=== PATIENT | male | born 1980 | race Caucasian/White ===

== ENCOUNTER 2022-06-08 10:32 | Emergency (ER) | payer MEDICAID, OTHER, SELFPAY ==
[2022-06-08 10:43] VITALS: BP 174/124; BP 220/101; PULSE 92; RESP 18; TEMP 36.6; O2SAT 96; BMI 28.0
--- NOTE | 2022-06-08 11:02 | ED.GENADULT ---
HPI - General Adult General Chief complaint: General Medical Stated complaint: EYE SWELLING,HIGH BP 200/150FROM WALKIN PER EMS Time Seen by Provider: 06/08/22 10:54 Source: patient, EMS and [place] operator Mode of arrival: ambulatory Limitations: language barrier History of Present Illness HPI narrative: 41 yo male palestinian speaking no medical history here with complaints of right eyelid swelling/pain x 3 days. Seen last night at [facility] and prescribed an oral antibiotic. Patient reports he did not nut picker the medication or started yet. Today when he woke up he noticed increased swelling to the eyelid with pain and so he went to a walk-in clinic. He was noted to have high blood pressure there and so he was referred into the ER for further evaluation. Patient tells me that his blood pressure has been running high over the last few months. They did tell him last night including [facility] that his blood pressure was elevated and recommended follow-up with primary care doctor. He does not have a primary care doctor. Patient reports they did have to give him something for his all pressure yesterday at [facility] to consider ER. He was not discharged home with any antihypertensive. At the urgent care today he did receive 325 mg of aspirin and 0.2 mg clonidine. Patient denies any headache, dizziness, chest pain, vision changes. Denies smoking history. He tells me he eats lots of salt in his diet and drinks coffee frequently. He tells me that he continues to have right eyelid swelling and pain. He tells me the eye does not hurt him. He does have some itching of the eye and crusting and drainage from the eye. He denies any vision changes. Related Data Previous Rx's Medication Instructions Recorded amlodipine 5 mg tablet (Norvasc) 5 mg PO DAILY #60 tabs 06/08/22 erythromycin 5 mg/gram (0.5 %) eye 1 appl ophthalmic (eye) DAILY #3.5 06/08/22 ointment grams Allergies Allergy/AdvReac Type Severity Reaction Status Date / Time No Known Allergies Allergy Verified 06/08/22 11:46 Review of Systems Review of Systems: Yes all other systems are reviewed and are negative Constitutional: Constitutional: Reports no additional constitutional complaints, Denies body ache(s), Denies chills, Denies fever(s), Denies headache(s) and Denies weakness Eyes: Eyes: Reports no additional eye complaints, Denies change in vision, Reports eye discharge, Reports itchy eyes, Denies eye pain, Denies requires corrective lenses and Denies photophobia ENT: Reports system reviewed and no additional complaints, except as documented, Denies dizziness, Denies headache(s), Denies nasal congestion, Denies nasal discharge and Denies neck pain Cardiovascular: Cardiovascular: Reports no additional cardiovascular complaints, Denies chest pain, Denies leg edema and Denies dyspnea Respiratory: Respiratory: Reports no additional respiratory complaints, Denies cough and Denies dyspnea Gastrointestinal: Gastrointestinal: Reports no additional gastrointestinal complaints, Denies abdominal pain, Denies diarrhea, Denies nausea and Denies vomiting Genitourinary: Genitourinary: Denies urinary incontinence Musculoskeletal: Musculoskeletal: Reports no additional musculoskeletal complaints, Denies back pain, Denies arthralgias, Denies joint swelling, Denies neck pain, Denies numbness and Denies tingling Integumentary/Breasts: Skin/Breast: Reports system reviewed and no additional complaints, except as docu and Denies rash Neurologic: Reports system reviewed and no additional complaints, except as documented, Denies dizziness, Denies headache(s), Denies numbness, Denies tingling and Denies weakness Allergic/Immunologic: Allergic/Immunologic: Reports itchy eyes PMFSH Past Medical History Attestation statement: The following information was validated with the patient. Source: old records reviewed and nursing notes reviewed Social History Social History Smoked in Last 30 Days: No Use of substances other than those prescribed or required for medical reasons: No Advance Directives: No Advance Directives Information Provided: Yes Physical Exam ED Vital Signs: Vital Signs - 24 hr 06/08/22 10:43 06/08/22 11:03 06/08/22 11:31 Temperature 98 F 98 F Pulse Rate 92 92 Respiratory Rate 18 18 Blood Pressure 174/124 H 174/124 H 151/97 H Pulse Oximetry 96 96 Oxygen Delivery Method Room Air Room Air 06/08/22 12:10 06/08/22 13:03 Temperature Pulse Rate 80 92 Respiratory Rate 16 12 Blood Pressure 164/112 H 143/99 H Pulse Oximetry 96 97 Oxygen Delivery Method Room Air Room Air BMI result Body Mass Index 28.0 Const General: cooperative, healthy appearing, comfortable and no acute distress Orientation/consciousness: patient oriented x3 Limitations: no limitations HENMT Head: Yes normal to inspection Ears: hearing grossly normal bilaterally and TM's normal bilaterally Eyes Other: See charted visual acuity IOP right eye 16, IOP left eye 17 No opthalmaplegia General: appearance normal, both eyes and all related structures Visual Rocha: normal visual rocha by confrontation Alignment and Position: alignment normal Periorbital: periorbital findings normal Eyelids: Yes eyelid abnormality (+chalazion with drainage to right upper eyelid) and Yes other (To the right upper eyelid there is swelling, erythema, tenderness) Conjunctivae: conjunctivae normal Sclerae: sclerae normal Corneas: corneas normal and fluorescein used (No corneal abrasion or foreign body) Pupils: Equal, round and reactive pupils present EOM: EOMs intact bilaterally Direct Ophthalmoscopy: normal light reflex, no photophobia and No photophobia Neck Neck: Yes normal visual inspection, Yes full ROM, Yes no lymphadenopathy and Yes no meningeal signs Chest Chest palpation & inspection: normal inspection of the chest Resp Effort & Inspection: normal respiratory effort Auscultation: clear to auscultation bilaterally Cardio Rate: regular rate Rhythm: regular rhythm Peripheral pulses: Peripheral pulses 2+ throughout GI Inspection: Yes normal to inspection Palpation (GI): Soft to palpation and nontender General: Yes no CVA tenderness Back/Spine/Pelvis Back: no CVA tenderness Thoracic/Lumbar Spine: thoracic and lumbar spine normal to inspection Skin General skin exam: no rashes or lesions noted Neuro General: patient oriented x3, moves all extremities and no meningeal signs Cranial nerves: Yes Equal, round and reactive pupils present Cognition (Neuro): normal cognition Gait exam (Neuro): Normal gait present Extrem General: Yes normal to inspection, Yes no pedal edema and Yes no calf tenderness Course Course Course Narrative: Blood pressure is improved. Labs are unremarkable. EKG shows no ischemic changes. Patient is asymptomatic with his hypertension. His eye exam shows normal visual acuity, normal pressures, no corneal foreign body or abrasion, no pain with EOM, no eye muscle weakness. Pupils are equal and reactive. Patient has a chalazion on exam. I did get the records from [facility]. The patient had a prescription for cephalexin sent to the pharmacy which she has not picked up. I recommend he nut picker a cephalexin. I am adding erythromycin ointment and a low-dose of Norvasc for his blood pressure with recommendations to establish a primary care doctor in follow-up. Patient has a blood pressure machine at home. I recommend he check his blood pressure weekly and write down his numbers for follow-up purposes. Reviewed worrisome signs and symptoms with parking patroller. Comfortable plan for discharge home. Medications Administered Discontinued Medications Generic Name Dose Route Start Last Admin Trade Name Lesia PRN Reason Stop Dose Admin Amlodipine Besylate 5 mg 06/08/22 11:47 06/08/22 12:04 Amlodipine Besylate 5 Mg Tablet PO 06/08/22 11:48 5 mg ONCE ONE Administration Protocol Fluorescein Sodium 1 strip 06/08/22 11:46 06/08/22 12:04 Fluorescein Sodium Strip EYE-RIGHT 06/08/22 11:47 1 strip ONCE ONE Administration Tetracaine HCl 1 drop 06/08/22 11:46 06/08/22 12:04 Tetracaine Hcl/Pf 0.5% Oph Megan 4 Ml Drops EYE-RIGHT 06/08/22 11:47 1 drop ONCE ONE Administration Medical Decision Making Medical Decision Making [facility] Narrative: 41-year-old male with no known medical history presents to urgent care with concern for hypertension. Patient received clonidine an aspirin prior to arrival. Patient has asymptomatic hypertension on arrival. Will check labs, UA, EKG, give low dose norvasc and re-assess. Patient initially went to urgent care due to concern for right eyelid swelling and pain. Patient has had this for 3 days with associated eye itching and drainage with no reports of visual change. Patient seen last excluded consider ER and prescribed an oral antibiotic which he does not know the name of the. Patient did not start the antibiotic but went to Urgent Care today because he felt the swelling was increased. On exam there is right upper eyelid swelling, erythema with a chalazion which is actively draining. Will need eye exam, visual acuity, eye pressure Differential Diagnosis Differential Diagnoses: The differential diagnosis associated with the presentation includes Low concern for orbital cellulitis, periorbital cellulitis, acute glaucoma, corneal foreign body Low concern for ACS, hypertensive crisis Lab Data [facility] Lab Attestation statement: I reviewed the patient's lab results. 06/08/22 11:55 06/08/22 11:55 Labs: Lab Results 06/08/22 06/08/22 06/08/22 Range/Units 11:55 11:55 12:21 WBC 8.4 (4.8-10.8) X10*3/uL RBC 5.80 (4.60-5.80) X10*6/uL Hgb 17.4 (14.0-18.0) g/dl Hct 49.4 (42.0-52.0) % MCV 85.2 (80.0-98.0) fL MCH 30.0 (27.0-33.0) pg MCHC 35.2 (31.0-36.0) g/dl RDW 11.9 (11.0-16.0) % Plt Count 263 (160-400) X10*3/uL MPV 8.7 L (9.4-12.4) fL Immature Gran % (Auto) 0.2 (0.0-0.4) % Neut % (Auto) 72.3 (45-73) % Lymph % (Auto) 21.6 (20-40) % Sebastian % (Auto) 5.0 (2-11) % Eos % (Auto) 0.4 (0-4) % Baso % (Auto) 0.5 (0-2) % Lymph # (Auto) 1.8 (1.2-4.9) X10*3/uL Sebastian # (Auto) 0.4 (0.1-1.2) X10*3/uL Eos # (Auto) 0.0 (0.0-0.4) X10*3/uL Baso # (Auto) 0.0 (0.0-0.2) X10*3/uL Abs Immat Gran (auto) 0.02 (0.00-0.03) X10*3/uL Absolute Neuts (auto) 6.1 (2.0-8.3) x10*3/uL Absolute Nucleated RBC 0.000 (0.0-0.012) X10*3/uL Nucleated RBC % (auto) 0.0 (0.0-0.2) /100WBC Sodium 142 (135-145) mmol/L Potassium 3.8 (3.3-5.1) mmol/L Chloride 109 H (96-108) mmol/L Carbon Dioxide 26 (22-29) mmol/L Anion Gap 11 L (12-20) BUN 9 (9-16) mg/dL Creatinine 0.83 (0.5-1.4) mg/dL Estim Creat Clear Calc 129.9 Estimated GFR > 60 Random Glucose 111 (60-115) mg/dL Calcium 9.1 (8.4-10.2) mg/dL Urine Color Yellow Urine Appearance Clear Urine pH 8.0 (5.0-9.0) Ur Specific [place] 1.015 (1.005-1.025) Urine Protein 30 (1+) H (Neg-Trace) mg/dL Urine Glucose (UA) Negative (Negative) mg/dL Urine Ketones Negative (Negative) mg/dL Urine Blood Negative (Negative) Urine Nitrite Negative (Negative) Ur Leukocyte Esterase Negative (Negative) Urine RBC 0-2 (0-2) /HPF Urine WBC 0-5 (0-5) /HPF Ur Squamous Epith Cells 0-2 (0-2) /HPF Urine Bacteria None Seen (None Seen) Hyaline Casts 0-2 (0-2) /LPF Independent Interpretation I performed an independent interpretation of an: EKG Interpretation: I independently the EKG which shows normal sinus rhythm with rate of 75, normal NV, normal QRS, normal QT Discharge Plan Discharge Clinical Impression: Hypertension, Chalazion of right upper eyelid Patient Disposition: Home, Self-Care Instructions: Chalazion (ED), Hypertension (ED) Additional Instructions: Compresas calientes 4 veces al d?a. Recoja el antibi?fernie que le recet? kyle el [facility] y comience lo antes posible. Agregue la pomada antibi?fanny para ojos que le estoy recetando hoy. Alcaraz presi?n arterial estaba elevada. Debe limitar la davy al rajat alcaraz dieta y alcaraz consumo de cafe?na tambi?n. Le estamos comenzando con un medicamento para la presi?n arterial. Debe controlar la presi?n arterial michael vez por semana en casa y anotar los n?meros. Es necesario establecer un m?dico de atenci?n primaria para el seguimiento con ellos en lo que respecta a alcaraz presi?n arterial. Prescriptions: New amlodipine [Norvasc] 5 mg tablet 5 mg PO DAILY Qty: 60 0RF erythromycin 5 mg/gram (0.5 %) ointment 1 appl ophthalmic (eye) DAILY Qty: 3.5 0RF Stand Alone Forms: Work/School Release Interventions: ED Discharge Assessment Last Done: 06/08/22 14:12 Discharge Date/Time: 06/08/22 14:13 Print Language: Palauan
[2022-06-08 11:03] VITALS: BP 174/124; PULSE 92; RESP 18; TEMP 36.6; O2SAT 96
--- NOTE | 2022-06-08 11:06 | PC.NURSE ---
waiting on on housekeeping staff
[2022-06-08 11:31] VITALS: BP 151/97
[2022-06-08 11:59] LABS: MANUAL DIFF FLAG NO
[2022-06-08 12:01] LABS: Basophils Percent Auto 0.5 % (0-2); Eosinophils Percent Auto 0.4 % (0-4); Hematocrit 49.4 % (42.0-52.0); Hemoglobin 17.4 g/dl (14.0-18.0); Imm Gran Abs Auto 0.02 X10*3/uL (0.00-0.03); Imm Gran Pct Auto 0.2 % (0.0-0.4); Lymphocytes Absolute Auto 1.8 X10*3/uL (1.2-4.9); Lymphocytes Percent Auto 21.6 % (20-40); Mean Corpuscular HGB Conc 35.2 g/dl (31.0-36.0); Mean Corpuscular Volume 85.2 fL (80.0-98.0); Mean Platelet Volume 8.7 fL (9.4-12.4); Monocytes Absolute Auto 0.4 X10*3/uL (0.1-1.2); Neutrophils Absolute Auto 6.1 x10*3/uL (2.0-8.3); Neutrophils Percent Auto 72.3 % (45-73); Platelet Count 263 X10*3/uL (160-400); Red Cell Distribution Width 11.9 % (11.0-16.0); White Blood Count 8.4 X10*3/uL (4.8-10.8)
[2022-06-08] MEDS: Tetracaine HCl/PF 0.5% Oph Sol 4 ML DROPS 1 DROP EYE-RIGHT (12:04)
[2022-06-08] MEDS: Fluorescein Sodium STRIP 1 STRIP EYE-RIGHT (12:04)
[2022-06-08] MEDS: amLODIPine Besylate 5 MG TABLET PO (12:04)
--- NOTE | 2022-06-08 12:08 | ECG_ITS ---
Test Reason : hypertension Blood Pressure : / mmHG Vent. Rate : 075 BPM Atrial Rate : 075 BPM P-R Int : 168 ms QRS Dur : 086 ms QT Int : 362 ms P-R-T Axes : 036 009 008 degrees QTc Int : 404 ms Normal sinus rhythm Inferior infarct , age undetermined Abnormal ECG No previous ECGs available Referred By: Kaci Choudhury Electronically Signed By:NAPOLEON KEEN MD
[2022-06-08 12:10] VITALS: BP 164/112; PULSE 80; RESP 16; O2SAT 96
[2022-06-08 12:24] LABS: Anion Gap 11 (12-20); Blood Urea Nitrogen 9 mg/dL (9-16); Calcium 9.1 mg/dL (8.4-10.2); Carbon Dioxide 26 mmol/L (22-29); Chloride 109 mmol/L (96-108); Creatinine Clr Calc Pharmacy 129.9; Estimated Glomerular Filt Rate > 60; Glucose Random 111 mg/dL (60-115); Potassium 3.8 mmol/L (3.3-5.1); Sodium 142 mmol/L (135-145)
[2022-06-08 12:27] LABS: Appearance Urine Clear; Color Urine Yellow; Glucose Urine UA Negative (Negative); Leukocyte Esterase Urine Negative (Negative); Nitrite Urine Negative (Negative); Specific Gravity - Urine 1.015 (1.005-1.025); UMIC TRIGGER UACC YES; Urine Blood Negative (Negative); Urine Ketones Negative (Negative); Urine Protein 30 (1+) mg/dL (Neg-Trace)
[2022-06-08 12:34] LABS: Bacteria Urine None Seen (None Seen); Hyaline Casts Urine 0-2 /LPF (0-2); RBC Urine 0-2 /HPF (0-2); Squamous Epithelial Cell Urine 0-2 /HPF (0-2); WBC Urine 0-5 /HPF (0-5)
[2022-06-08 13:03] VITALS: BP 143/99; PULSE 92; RESP 12; O2SAT 97
--- NOTE | 2022-06-08 13:48 | MHC.CM.NN ---
CM MET WITH PT TO DISCUSS IMPORTANCE/PROCESS OF FOLLOWING UP WITH A PCP PT HAS LIMITED INSURANCE, HE WAS THEREFORE ENCOURAGED TO FOLLOW UP AT THE [facility] HE HAS INDICATED HE IS FAMILIAR WITH THE FACILITY AND WILL MAKE AN APPT HE IS AWARE THEY HAVE URGENT CARE HOURS IF HE NEEDS CARE PROIR TO APPT
== END 2022-06-08 14:13 | disposition home or self-care (01) ==
PROVIDERS: Nurse Practitioner Family; Emergency Provider Emergency Medicine
DX: H00.11 Chalazion right upper eyelid (principal); I10 Essential (primary) hypertension; R94.31 Abnormal electrocardiogram [ECG] [EKG]; Z79.899 Other long term (current) drug therapy
CPT/HCPCS: 36415; 80048; 81001; 85025; 93005; 99283; 99285

== ENCOUNTER 2022-06-20 20:30 | Emergency (ER) | payer MEDICAID, OTHER, SELFPAY ==
--- NOTE | ~2022-06-20 | XR_ITS ---
EXAMINATION: XR CHEST CLINICAL INFORMATION: Pain COMPARISON: None available. TECHNIQUE: 2 views of the chest were obtained. FINDINGS: No significant abnormality is noted involving the heart, lungs, mediastinum, bony thorax or soft tissues. XR/XR chest 2V IMPRESSION: Unremarkable examination.
[2022-06-20 20:35] VITALS: BP 166/116; PULSE 76; RESP 18; TEMP 36.3; O2SAT 99; BMI 33.9
--- NOTE | 2022-06-20 20:37 | ECG_ITS ---
Test Reason : CHEST PAIN Blood Pressure : / mmHG Vent. Rate : 070 BPM Atrial Rate : 070 BPM P-R Int : 174 ms QRS Dur : 092 ms QT Int : 388 ms P-R-T Axes : 014 008 011 degrees QTc Int : 419 ms Normal sinus rhythm Normal ECG When compared with ECG of 08-JUN-2022 12:15, No significant change was found Referred By: Carlos Pérez Electronically Signed By:KENDELL DAUGHERTY
--- NOTE | 2022-06-20 20:37 | ED_ITS ---
HPI - General Adult General Chief complaint: Chest Pain <Carlos Pérez - Last Filed: 06/20/22 20:39> Stated complaint: high bp <Carlos Pérez - Last Filed: 06/20/22 20:39> Time Seen by Provider: 06/20/22 21:00 <Carlos Pérez - Last Filed: 06/20/22 20:39> Source: patient <Brie Frazier MD - Last Filed: 06/21/22 00:50> Mode of arrival: ambulatory <Brie Frazier MD - Last Filed: 06/21/22 00:50> Limitations: no limitations <Brie Frazier MD - Last Filed: 06/21/22 00:50> History of Present Illness HPI narrative: Patient comes emergency room complaining of chest pain that started approximately 2 1-1/2 hours ago. Patient states that the sharp pain on the left, gradually decreasing. Patient denies any shortness of breath. Patient states that for the last couple of weeks, he has had increased blood pressure, about a week ago he was started on 5 mg amlodipine, his blood pressure did not improve, started on chlorthalidone 25 mg 2 days later. Patient states that he does not think amlodipine 5 mg worked and stop taking amlodipine instead of taking both medications. <Brie Frazier MD - Last Filed: 06/21/22 00:50> Related Data Home medications: Previous Rx's Medication Instructions Recorded amlodipine 5 mg tablet (Norvasc) 5 mg PO DAILY #60 tabs 06/08/22 erythromycin 5 mg/gram (0.5 %) eye 1 appl ophthalmic (eye) DAILY #3.5 06/08/22 ointment grams <Carlos Pérez - Last Filed: 06/20/22 20:39> Allergies/adverse reactions: Allergies Allergy/AdvReac Type Severity Reaction Status Date / Time No Known Allergies Allergy Verified 06/08/22 11:46 <Carlos Pérez - Last Filed: 06/20/22 20:39> Review of Systems Review of Systems: Constitutional : No Weight loss, No Fever, No Chills, No Night Sweats, No Fatigue, No Malaise ENT/Mouth : No Hearing loss, No Ear Pain, No Nasal Congestion, No Sinus Pain, No Hoarseness, No sore throat, No Rhinorrhea, No Swallowing Difficulty Eyes: No Eye Pain, No Swelling, No Redness, No Foreign Body, No Discharge, No Vision Changes Cardiovascular : Complaining of sharp chest pain that is gradually resolving, No SOB, No Dyspnea on Exertion, No Orthopnea, No Edema, No Palpitations Respiratory : No Cough, No Sputum, No Wheezing, No Smoke Exposure, No Dyspnea Gastrointestinal : No Nausea, No Vomiting, No Diarrhea, No Constipation, No abdominal Pain, No Hematochezia, No Melena Genitourinary : no irregular bleeding, No Dysuria, No Urinary Frequency, No Hematuria, No Urinary Incontinence, No Urgency, No Flank Pain, No Urinary Flow Changes, No Hesitancy Musculoskeletal : No joint pain, No Myalgias, No Joint Swelling Skin : No Skin Lesions, No rash Neuro : No Weakness, No Numbness, No Paresthesias, No Loss of Consciousness, No Dizziness, No Headache Psych : No Anxiety/Panic, No Depression, No SI/HI/AH/VH, No Social Issues, Heme/Lymph: No Bruising, No Bleeding,No Lymphadenopathy Endocrine : No Polyuria, No Polydipsia, No Temperature Intolerance <Brie Frazier MD - Last Filed: 06/21/22 00:50> [facility] Past Medical History Medical History: Medical History Hypertension Prediabetes <Carlos Pérez - Last Filed: 06/20/22 20:39> Social History Social History: Social History Advance Directives: No Advance Directives Information Provided: No <Carlos Pérez - Last Filed: 06/20/22 20:39> Physical Exam ED Vital Signs: Vital Signs - 24 hr 06/20/22 20:35 06/20/22 23:52 Temperature 97.4 F 98.0 F Pulse Rate 76 62 Respiratory Rate 18 19 Blood Pressure 166/116 H 136/92 H Pulse Oximetry 99 97 Oxygen Delivery Method Room Air Room Air BMI result Body Mass Index 33.9 <Carlos Pérez - Last Filed: 06/20/22 20:39> Vital Signs - 24 hr 06/20/22 20:35 06/20/22 23:52 Temperature 97.4 F 98.0 F Pulse Rate 76 62 Respiratory Rate 18 19 Blood Pressure 166/116 H 136/92 H Pulse Oximetry 99 97 Oxygen Delivery Method Room Air Room Air BMI result Body Mass Index 33.9 <Brie Frazier MD - Last Filed: 06/21/22 00:50> Const Other: Appearance: Alert. Oriented X3. No acute distress. Eyes: Pupils equal, round and reactive to light. ENT: Pharynx normal. Neck: Normal inspection. Neck supple. No lymph nodes noted. No crepitus CVS: Normal heart rate and rhythm. Pulses normal. Normal S1 and S2 Respiratory: No respiratory distress. Breath sounds normal. No Wheezing. No rales Abdomen: Soft and nontender. No rigidity. No distention. Skin: Skin warm and dry. Normal skin color. Normal skin turgor. Extremities: No lower extremity edema. No Lacerations. No Rash Neuro: Oriented X 3. No motor deficit. No sensory deficit. Moving all extremities. No slurred speech. CN 2 through 12 grossly intact Psych: calm, cooperative, normal affect <Brie Frazier MD - Last Filed: 06/21/22 00:50> Course Course Course Narrative: 41-year-old male past medical history significant for high blood pressure presents for evaluation of high blood pressure and chest pain. Patient reports high blood pressure for last 2 weeks. He reports dizziness, blurry vision and headache that started today. Plan for cardiac work <Carlos Pérez - Last Filed: 06/20/22 20:39> Medications Administered Discontinued Medications Generic Name Dose Route Start Last Admin Trade Name Freq PRN Reason Stop Dose Admin Amlodipine Besylate 10 mg 06/20/22 22:29 06/20/22 22:40 Amlodipine Besylate 10 Mg Tablet PO 06/20/22 22:30 10 mg ONCE ONE Administration Protocol <Carlos Pérez - Last Filed: 06/20/22 20:39> Medications Administered Discontinued Medications Generic Name Dose Route Start Last Admin Trade Name Freq PRN Reason Stop Dose Admin Amlodipine Besylate 10 mg 06/20/22 22:29 06/20/22 22:40 Amlodipine Besylate 10 Mg Tablet PO 06/20/22 22:30 10 mg ONCE ONE Administration Protocol <Brie Frazier MD - Last Filed: 06/21/22 00:50> Medical Decision Making Medical Decision Making [facility] Narrative: -I discussed with the patient that now he has to blood pressure medication s, the 1st 1 is not a maximum dose. I discussed with the patient to increase amlodipine to full dose before adding a 2nd medication. Patient agrees to plan, patient will be taking 10 mg of amlodipine, hold off on taking chlorthalidone. -patient has not taking amlodipine today, patient will be given 1 dose of 10 mg in the emergency room. -EKG my interpretation: Normal sinus rhythm, heart rate 70, no ST segment depression or elevation, specific T-wave inversion in lead 3, QTC 419 -discussed with the patient I will obtain a 2nd troponin, 3 hours apart from the 1st set of lab work, patient with plan. -at this time, patient feeling well, states he has residual sensation of pain in the chest but no significant pain. Denies Shortness of breath -patient was given 1 dose of amlodipine 10 mg, blood pressure 136/92, patient asymptomatic. -patient just picked up his new prescription of amlodipine a few days ago, patient has home amlodipine, does not request a new prescription <Brie Frazier MD - Last Filed: 06/21/22 00:50> Differential Diagnosis Differential Diagnoses: The differential diagnosis associated with the presentation includes (Hypertension, anxiety) <Brie Frazier MD - Last Filed: 06/21/22 00:50> Lab Data [facility] Lab Attestation statement: I reviewed the patient's lab results. <Brie Frazier MD - Last Filed: 06/21/22 00:50> Result Diagrams: 06/20/22 20:52 06/20/22 20:52 <Carlos Pérez - Last Filed: 06/20/22 20:39> Labs: Lab Results 06/20/22 06/20/22 06/20/22 Range/Units 20:52 20:52 20:52 WBC 7.7 (4.8-10.8) X10*3/uL RBC 5.60 (4.60-5.80) X10*6/uL Hgb 16.7 (14.0-18.0) g/dl Hct 46.6 (42.0-52.0) % MCV 83.2 (80.0-98.0) fL MCH 29.8 (27.0-33.0) pg MCHC 35.8 (31.0-36.0) g/dl RDW 11.6 (11.0-16.0) % Plt Count 288 (160-400) X10*3/uL MPV 8.9 L (9.4-12.4) fL Immature Gran % (Auto) 0.1 (0.0-0.4) % Neut % (Auto) 57.7 (45-73) % Lymph % (Auto) 35.0 (20-40) % [place] % (Auto) 6.5 (2-11) % Eos % (Auto) 0.3 (0-4) % Baso % (Auto) 0.4 (0-2) % Lymph # (Auto) 2.7 (1.2-4.9) X10*3/uL [place] # (Auto) 0.5 (0.1-1.2) X10*3/uL Eos # (Auto) 0.0 (0.0-0.4) X10*3/uL Baso # (Auto) 0.0 (0.0-0.2) X10*3/uL Abs Immat Gran (auto) 0.01 (0.00-0.03) X10*3/uL Absolute Neuts (auto) 4.5 (2.0-8.3) x10*3/uL Absolute Nucleated RBC 0.000 (0.0-0.012) X10*3/uL Nucleated RBC % (auto) 0.0 (0.0-0.2) /100WBC Sodium 139 (135-145) mmol/L Potassium 3.6 (3.3-5.1) mmol/L Chloride 103 (96-108) mmol/L Carbon Dioxide 28 (22-29) mmol/L Anion Gap 12 (12-20) BUN 12 (9-16) mg/dL Creatinine 0.96 (0.5-1.4) mg/dL Estim Creat Clear Calc 115.9 Estimated GFR > 60 Random Glucose 91 (60-115) mg/dL Calcium 9.7 D (8.4-10.2) mg/dL Magnesium 2.4 (1.6-2.6) mg/dL Total Bilirubin 1.3 H (0.0-1.0) mg/dL AST 63 H (5-37) U/L ALT 151 H (0-40) U/L Alkaline Phosphatase 126 H (39-117) U/L Troponin I High Sens < 2.7 (<3.5-35.0) ng/L Total Protein 7.8 (6.5-8.0) g/dL Albumin 4.9 (3.5-5.0) g/dL 06/20/22 Range/Units 22:51 WBC (4.8-10.8) X10*3/uL RBC (4.60-5.80) X10*6/uL Hgb (14.0-18.0) g/dl Hct (42.0-52.0) % MCV (80.0-98.0) fL MCH (27.0-33.0) pg MCHC (31.0-36.0) g/dl RDW (11.0-16.0) % Plt Count (160-400) X10*3/uL MPV (9.4-12.4) fL Immature Gran % (Auto) (0.0-0.4) % Neut % (Auto) (45-73) % Lymph % (Auto) (20-40) % [place]ilton % (Auto) (2-11) % Eos % (Auto) (0-4) % Baso % (Auto) (0-2) % Lymph # (Auto) (1.2-4.9) X10*3/uL [place] # (Auto) (0.1-1.2) X10*3/uL Eos # (Auto) (0.0-0.4) X10*3/uL Baso # (Auto) (0.0-0.2) X10*3/uL Abs Immat Gran (auto) (0.00-0.03) X10*3/uL Absolute Neuts (auto) (2.0-8.3) x10*3/uL Absolute Nucleated RBC (0.0-0.012) X10*3/uL Nucleated RBC % (auto) (0.0-0.2) /100WBC Sodium (135-145) mmol/L Potassium (3.3-5.1) mmol/L Chloride (96-108) mmol/L Carbon Dioxide (22-29) mmol/L Anion Gap (12-20) BUN (9-16) mg/dL Creatinine (0.5-1.4) mg/dL Estim Creat Clear Calc Estimated GFR Random Glucose (60-115) mg/dL Calcium (8.4-10.2) mg/dL Magnesium (1.6-2.6) mg/dL Total Bilirubin (0.0-1.0) mg/dL AST (5-37) U/L ALT (0-40) U/L Alkaline Phosphatase (39-117) U/L Troponin I High Sens < 2.7 (<3.5-35.0) ng/L Total Protein (6.5-8.0) g/dL Albumin (3.5-5.0) g/dL <Carlos Pérez - Last Filed: 06/20/22 20:39> Lab Results 06/20/22 06/20/22 06/20/22 Range/Units 20:52 20:52 20:52 WBC 7.7 (4.8-10.8) X10*3/uL RBC 5.60 (4.60-5.80) X10*6/uL Hgb 16.7 (14.0-18.0) g/dl Hct 46.6 (42.0-52.0) % MCV 83.2 (80.0-98.0) fL MCH 29.8 (27.0-33.0) pg MCHC 35.8 (31.0-36.0) g/dl RDW 11.6 (11.0-16.0) % Plt Count 288 (160-400) X10*3/uL MPV 8.9 L (9.4-12.4) fL Immature Gran % (Auto) 0.1 (0.0-0.4) % Neut % (Auto) 57.7 (45-73) % Lymph % (Auto) 35.0 (20-40) % [place] % (Auto) 6.5 (2-11) % Eos % (Auto) 0.3 (0-4) % Baso % (Auto) 0.4 (0-2) % Lymph # (Auto) 2.7 (1.2-4.9) X10*3/uL [place] # (Auto) 0.5 (0.1-1.2) X10*3/uL Eos # (Auto) 0.0 (0.0-0.4) X10*3/uL Baso # (Auto) 0.0 (0.0-0.2) X10*3/uL Abs Immat Gran (auto) 0.01 (0.00-0.03) X10*3/uL Absolute Neuts (auto) 4.5 (2.0-8.3) x10*3/uL Absolute Nucleated RBC 0.000 (0.0-0.012) X10*3/uL Nucleated RBC % (auto) 0.0 (0.0-0.2) /100WBC Sodium 139 (135-145) mmol/L Potassium 3.6 (3.3-5.1) mmol/L Chloride 103 (96-108) mmol/L Carbon Dioxide 28 (22-29) mmol/L Anion Gap 12 (12-20) BUN 12 (9-16) mg/dL Creatinine 0.96 (0.5-1.4) mg/dL Estim Creat Clear Calc 115.9 Estimated GFR > 60 Random Glucose 91 (60-115) mg/dL Calcium 9.7 D (8.4-10.2) mg/dL Magnesium 2.4 (1.6-2.6) mg/dL Total Bilirubin 1.3 H (0.0-1.0) mg/dL AST 63 H (5-37) U/L ALT 151 H (0-40) U/L Alkaline Phosphatase 126 H (39-117) U/L Troponin I High Sens < 2.7 (<3.5-35.0) ng/L Total Protein 7.8 (6.5-8.0) g/dL Albumin 4.9 (3.5-5.0) g/dL 06/20/22 Range/Units 22:51 WBC (4.8-10.8) X10*3/uL RBC (4.60-5.80) X10*6/uL Hgb (14.0-18.0) g/dl Hct (42.0-52.0) % MCV (80.0-98.0) fL MCH (27.0-33.0) pg MCHC (31.0-36.0) g/dl RDW (11.0-16.0) % Plt Count (160-400) X10*3/uL MPV (9.4-12.4) fL Immature Gran % (Auto) (0.0-0.4) % Neut % (Auto) (45-73) % Lymph % (Auto) (20-40) % [place] % (Auto) (2-11) % Eos % (Auto) (0-4) % Baso % (Auto) (0-2) % Lymph # (Auto) (1.2-4.9) X10*3/uL [place] # (Auto) (0.1-1.2) X10*3/uL Eos # (Auto) (0.0-0.4) X10*3/uL Baso # (Auto) (0.0-0.2) X10*3/uL Abs Immat Gran (auto) (0.00-0.03) X10*3/uL Absolute Neuts (auto) (2.0-8.3) x10*3/uL Absolute Nucleated RBC (0.0-0.012) X10*3/uL Nucleated RBC % (auto) (0.0-0.2) /100WBC Sodium (135-145) mmol/L Potassium (3.3-5.1) mmol/L Chloride (96-108) mmol/L Carbon Dioxide (22-29) mmol/L Anion Gap (12-20) BUN (9-16) mg/dL Creatinine (0.5-1.4) mg/dL Estim Creat Clear Calc Estimated GFR Random Glucose (60-115) mg/dL Calcium (8.4-10.2) mg/dL Magnesium (1.6-2.6) mg/dL Total Bilirubin (0.0-1.0) mg/dL AST (5-37) U/L ALT (0-40) U/L Alkaline Phosphatase (39-117) U/L Troponin I High Sens < 2.7 (<3.5-35.0) ng/L Total Protein (6.5-8.0) g/dL Albumin (3.5-5.0) g/dL <Brie Frazier MD - Last Filed: 06/21/22 00:50> Independent Interpretation I performed an independent interpretation of an: Plain X-Ray (My interpretation of chest x-ray: Normal x-ray) <Brie Frazier MD - Last Filed: 06/21/22 00:50> Radiology Impression Discussion of test interpretation with radiology: I have reviewed the radiologist's reading. <Brie Frazier MD - Last Filed: 06/21/22 00:50> Radiologist Impression: FINDINGS: No significant abnormality is noted involving the heart, lungs, mediastinum, bony thorax or soft tissues. XR/XR chest 2V IMPRESSION: Unremarkable examination. <Brie Frazier MD - Last Filed: 06/21/22 00:50> Discharge Plan Discharge Clinical Impression: Atypical chest pain, Hypertension <Carlos Pérez - Last Filed: 06/20/22 20:39> Patient Disposition: Home, Self-Care <Carlos Pérez - Last Filed: 06/20/22 20:39> Instructions: Hypertension (ED) <Carlos Pérez - Last Filed: 06/20/22 20:39> Additional Instructions: Please take 2 tablets of amlodipine daily (10 mg daily). Do not take chlorthalidone. Please follow-up with your primary care physician tomorrow. If you have any worsening or new symptoms, please return to the emergency room or call 911 <Carlos Pérez - Last Filed: 06/20/22 20:39> Prescriptions: No Action amlodipine [Norvasc] 5 mg tablet 5 mg PO DAILY Qty: 60 0RF erythromycin 5 mg/gram (0.5 %) ointment 1 appl ophthalmic (eye) DAILY Qty: 3.5 0RF <Carlos Pérez - Last Filed: 06/20/22 20:39>
[2022-06-20 20:56] LABS: MANUAL DIFF FLAG NO
[2022-06-20 20:58] LABS: Basophils Percent Auto 0.4 % (0-2); Eosinophils Percent Auto 0.3 % (0-4); Hematocrit 46.6 % (42.0-52.0); Hemoglobin 16.7 g/dl (14.0-18.0); Imm Gran Abs Auto 0.01 X10*3/uL (0.00-0.03); Imm Gran Pct Auto 0.1 % (0.0-0.4); Lymphocytes Absolute Auto 2.7 X10*3/uL (1.2-4.9); Mean Corpuscular HGB Conc 35.8 g/dl (31.0-36.0); Mean Corpuscular Hemoglobin 29.8 pg (27.0-33.0); Mean Corpuscular Volume 83.2 fL (80.0-98.0); Mean Platelet Volume 8.9 fL (9.4-12.4); Monocytes Absolute Auto 0.5 X10*3/uL (0.1-1.2); Monocytes Percent Auto 6.5 % (2-11); Neutrophils Absolute Auto 4.5 x10*3/uL (2.0-8.3); Neutrophils Percent Auto 57.7 % (45-73); Platelet Count 288 X10*3/uL (160-400); Red Cell Distribution Width 11.6 % (11.0-16.0); White Blood Count 7.7 X10*3/uL (4.8-10.8)
[2022-06-20 21:14] LABS: Alanine Aminotransferase 151 U/L (0-40); Albumin Level 4.9 g/dL (3.5-5.0); Alkaline Phosphatase 126 U/L (39-117); Anion Gap 12 (12-20); Aspartate Amino Transferase 63 U/L (5-37); Bilirubin Total 1.3 mg/dL (0.0-1.0); Blood Urea Nitrogen 12 mg/dL (9-16); Calcium 9.7 mg/dL (8.4-10.2); Carbon Dioxide 28 mmol/L (22-29); Chloride 103 mmol/L (96-108); Creatinine Clr Calc Pharmacy 115.9; Estimated Glomerular Filt Rate > 60; Glucose Random 91 mg/dL (60-115); Magnesium 2.4 mg/dL (1.6-2.6); Potassium 3.6 mmol/L (3.3-5.1); Sodium 139 mmol/L (135-145); Total Protein 7.8 g/dL (6.5-8.0)
[2022-06-20 21:21] LABS: Troponin-I High Sensitivity < 2.7 ng/L (<3.5-35.0)
[2022-06-20] MEDS: amLODIPine Besylate 10 MG TABLET PO (22:40)
[2022-06-20 23:19] LABS: Troponin-I High Sensitivity < 2.7 ng/L (<3.5-35.0)
[2022-06-20 23:52] VITALS: BP 136/92; PULSE 62; RESP 19; TEMP 36.7; O2SAT 97
== END 2022-06-21 01:14 | disposition home or self-care (01) ==
PROVIDERS: Physician Assistant; Emergency Provider Emergency Medicine
DX: R07.89 Other chest pain (principal); I10 Essential (primary) hypertension; Z79.899 Other long term (current) drug therapy
CPT/HCPCS: 36415; 71046; 80053; 83735; 84484; 85025; 93005; 99283; 99284

== ENCOUNTER 2022-12-04 13:11 | Emergency (ER) | payer MEDICAID, OTHER, SELFPAY ==
[2022-12-04 13:26] VITALS: BP 131/97; PULSE 80; RESP 16; TEMP 36.6; O2SAT 98; BMI 29.7
--- NOTE | 2022-12-04 13:27 | ED.GENADULT ---
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 He reports his symptoms started 5 days ago. He reports his blood pressures have been elevated as high as ?157/110. He takes losartan/hydrochlorothiazide which she has been taking as prescribed He denies any fevers, chills, cough, Sore throat. No abdominal pain nausea vomiting, diarrhea He endorses general weakness but denies body aches Denies sick contacts Related Data Previous Rx's Medication Instructions Recorded amlodipine 5 mg tablet (Norvasc) 5 mg PO DAILY #60 tabs 06/08/22 erythromycin 5 mg/gram (0.5 %) eye 1 appl ophthalmic (eye) DAILY #3.5 06/08/22 ointment grams bnsdolwrvu-kdzszkidjwfyi-aqbpioct 1 cap PO TID PRN headache #12 caps 12/04/22 50 mg-300 mg-40 mg capsule (Fioricet) Allergies Allergy/AdvReac Type Severity Reaction Status Date / Time No Known Allergies Allergy Verified 06/08/22 11:46 Review of Systems Constitutional: Constitutional: Denies fever(s) and Reports headache(s) Eyes: Eyes: Denies blurry vision ENT: Reports headache(s), Denies sinus pressure and Denies sore throat Cardiovascular: Cardiovascular: Reports chest pain and Denies dyspnea Respiratory: Respiratory: Denies cough and Denies dyspnea Gastrointestinal: Gastrointestinal: Denies abdominal pain, Denies nausea and Denies vomiting Genitourinary: Genitourinary: Denies dysuria Musculoskeletal: Musculoskeletal: Denies back pain Integumentary/Breasts: Skin/Breast: Denies rash Neurologic: Reports headache(s) [facility] Past Medical History Medical History Hypertension Prediabetes Social History Social History Advance Directives: No Advance Directives Information Provided: No Physical Exam ED Vital Signs: Vital Signs - 24 hr 12/04/22 13:26 12/04/22 17:27 12/04/22 17:57 Temperature 97.8 F Pulse Rate 80 65 63 Respiratory Rate 16 16 Blood Pressure 131/97 H 120/91 H 120/85 Pulse Oximetry 98 99 99 Oxygen Delivery Method Room Air Room Air Room Air BMI result Body Mass Index 29.7 Const General: healthy appearing, comfortable, no acute distress, alert and awake Nutritional Appearance: well nourished Orientation/consciousness: patient oriented x3 HENMT Head: Yes normocephalic and Yes atraumatic Ears: external ears normal and TM's normal bilaterally Face and sinus: Yes normal facial exam and Yes sinuses nontender Throat: Yes posterior oropharynx normal Eyes Eyelids: Yes eyelids normal Conjunctivae: conjunctivae normal Sclerae: sclerae normal Corneas: corneas normal Pupils: Equal, round and reactive pupils present EOM: EOMs intact bilaterally Neck Neck: Yes full ROM Resp Effort & Inspection: normal respiratory effort, able to speak in complete sentences, no audible wheezes and not labored Auscultation: clear to auscultation bilaterally Cardio Rate: regular rate Rhythm: regular rhythm GI Inspection: No distended Palpation (GI): Soft to palpation, not firm, nontender, no guarding and not rigid Skin General skin exam: elasticity normal Neuro General: patient oriented x3 Cranial nerves: Yes CN's II-XII intact bilaterally, Yes Equal, round and reactive pupils present and Yes Bilaterally intact EOM present Cognition (Neuro): normal cognition Motor exam (neuro): 5/5 motor strength present throughout Extrem Other: Moving all extremities well without any obvious deformities Course Course Course Narrative: This is an RME: Additional HPI, ROS, PE not included below will be deferred to primary provider. Patient is a 42-year-old male who presents emergency department endorsing dizziness, frontal headache, substernal and R anterior CP, generalized weakness, and HTN at home, endorses taking losartan-HCTZ 100/25, every 2-3 days, reportedly as per doctors instruction. Symptoms intermittently over the past 5 days. Plan: labs, EKG, CXR Medications Administered Discontinued Medications Generic Name Dose Route Start Last Admin Trade Name Freq PRN Reason Stop Dose Admin Acetaminophen/Butalbital/Caffeine 1 tab 12/04/22 17:36 12/04/22 17:56 Butalb/Acetamin/Caff 50/325/40 Tablet PO 12/04/22 17:37 1 tab ONCE ONE Administration Medical Decision Making Medical Decision Making [facility] Narrative: [age] year old male past medical history significant for high blood pressure presents for evaluation of, chest pain. His cardiac workup as artery resulted and is negative. He has no neuro deficits on exam. His headache is mild. Low suspicion for intracranial mass or bleed, his stroke score is 0. Given that his EKG is nonischemic, his troponin is negative, he has only 1 risk factors for ACS, this is essentially ruled out. Patient's symptoms may be related to anxiety regarding his slightly elevated blood pressures. His repeat in the ER was 120/91. Will treat his headache with Fioricet, he is not actively having chest pain. He has no viral symptoms to suggest COVID-19 or influenza Differential Diagnosis Differential Diagnoses: The differential diagnosis associated with the presentation includes Hypertension Viral syndrome ACS Sinusitis Headache Lab Data [facility] Lab Attestation statement: I reviewed the patient's lab results. No leukocytosis, no anemia. Normal platelet count. No electrolyte abnormalities. Normal renal function. Troponin less than 2.7 12/04/22 13:24 12/04/22 13:24 Labs: Lab Results 12/04/22 Range/Units 13:24 WBC 8.0 (4.8-10.8) X10*3/uL RBC 5.81 H (4.60-5.80) X10*6/uL Hgb 17.4 (14.0-18.0) g/dl Hct 49.6 (42.0-52.0) % MCV 85.4 (80.0-98.0) fL MCH 29.9 (27.0-33.0) pg MCHC 35.1 (31.0-36.0) g/dl RDW 11.7 (11.0-16.0) % Plt Count 291 (160-400) X10*3/uL MPV 8.6 L (9.4-12.4) fL Immature Gran % (Auto) 0.1 (0.0-0.4) % Neut % (Auto) 60.0 (45-73) % Lymph % (Auto) 33.0 (20-40) % Walker % (Auto) 6.1 (2-11) % Eos % (Auto) 0.3 (0-4) % Baso % (Auto) 0.5 (0-2) % Lymph # (Auto) 2.6 (1.2-4.9) X10*3/uL Walker # (Auto) 0.5 (0.1-1.2) X10*3/uL Eos # (Auto) 0.0 (0.0-0.4) X10*3/uL Baso # (Auto) 0.0 (0.0-0.2) X10*3/uL Abs Immat Gran (auto) 0.01 (0.00-0.03) X10*3/uL Absolute Neuts (auto) 4.8 (2.0-8.3) x10*3/uL Absolute Nucleated RBC 0.000 (0.0-0.012) X10*3/uL Nucleated RBC % (auto) 0.0 (0.0-0.2) /100WBC Sodium 135 (135-145) mmol/L Potassium 3.6 (3.3-5.1) mmol/L Chloride 102 (96-108) mmol/L Carbon Dioxide 22 (22-29) mmol/L Anion Gap 15 (12-20) BUN 12 (9-16) mg/dL Creatinine 0.86 (0.5-1.4) mg/dL Estim Creat Clear Calc 128.5 Estimated GFR > 60 Random Glucose 106 (60-115) mg/dL Calcium 9.8 (8.4-10.2) mg/dL Troponin I High Sens < 2.7 (<3.5-35.0) ng/L Independent Interpretation I performed an independent interpretation of an: EKG (Normal sinus rhythm with a rate of 75 beats per minute. No ST changes) and Plain X-Ray (No infiltrates) Radiology Impression Discussion of test interpretation with radiology: I have reviewed the radiologist's reading. (Unremarkable examination) Discharge Plan Discharge Clinical Impression: Chest pain, Headache Patient Disposition: Home, Self-Care Instructions: Chest Pain (ED), Acute Headache (ED) Additional Instructions: Your workup in the emergency department today was reassuring. You may use Fioricet as needed for further headache Continue taking your blood pressure medication as prescribed Follow-up with your primary doctor Prescriptions: New ieypnllbvf-vgetcwqthrmyf-pril [Fioricet] 50-300-40 mg capsule 1 cap PO TID PRN (Reason: headache) Qty: 12 0RF No Action amlodipine [Norvasc] 5 mg tablet 5 mg PO DAILY Qty: 60 0RF erythromycin 5 mg/gram (0.5 %) ointment 1 appl ophthalmic (eye) DAILY Qty: 3.5 0RF
[2022-12-04 17:27] VITALS: BP 120/91; PULSE 65; O2SAT 99
--- NOTE | 2022-12-04 17:39 | PC.NURSE ---
pt medicated per the MAR for pain. requesting food. denies any other complaints at this time, resting quietly in room with call toth within reach
[2022-12-04 17:57] VITALS: BP 120/85; PULSE 63; RESP 16; O2SAT 99
== END 2022-12-04 18:49 | disposition home or self-care (01) ==
PROVIDERS: Emergency Provider Student in an Organized Health Care Education/Training Program; PCP Student in an Organized Health Care Education/Training Program
DX: R07.9 Chest pain, unspecified (principal); R51.9 Headache, unspecified; I10 Essential (primary) hypertension; R73.03 Prediabetes; Z79.899 Other long term (current) drug therapy
CPT/HCPCS: 36415; 71046; 80048; 84484; 85025; 93005; 99283; 99285

== ENCOUNTER 2023-03-29 23:26 | Emergency (ER) | payer OTHER, SELFPAY ==
[2023-03-29 23:50] VITALS: BP 142/92; PULSE 68; RESP 16; TEMP 36.4; O2SAT 100; BMI 25.4
--- NOTE | 2023-03-29 23:54 | ECG_ITS ---
Test Reason : htn Blood Pressure : / mmHG Vent. Rate : 065 BPM Atrial Rate : 065 BPM P-R Int : 168 ms QRS Dur : 084 ms QT Int : 372 ms P-R-T Axes : 009 022 017 degrees QTc Int : 386 ms Normal sinus rhythm Normal ECG When compared with ECG of 04-DEC-2022 13:16, No significant change was found Referred By: Generic ED Physician Electronically Signed By:NAPOLEON KEEN MD
[2023-03-30 00:55] LABS: MANUAL DIFF FLAG NO
[2023-03-30 00:58] LABS: Basophils Percent Auto 0.5 % (0-2); Eosinophils Absolute Auto 0.1 X10*3/uL (0.0-0.4); Eosinophils Percent Auto 0.6 % (0-4); Hematocrit 45.2 % (42.0-52.0); Hemoglobin 16.2 g/dl (14.0-18.0); Imm Gran Abs Auto 0.02 X10*3/uL (0.00-0.03); Imm Gran Pct Auto 0.2 % (0.0-0.4); Lymphocytes Absolute Auto 3.4 X10*3/uL (1.2-4.9); Mean Corpuscular HGB Conc 35.8 g/dl (31.0-36.0); Mean Corpuscular Hemoglobin 30.3 pg (27.0-33.0); Mean Corpuscular Volume 84.5 fL (80.0-98.0); Mean Platelet Volume 8.5 fL (9.4-12.4); Monocytes Absolute Auto 0.5 X10*3/uL (0.1-1.2); Monocytes Percent Auto 6.3 % (2-11); Neutrophils Absolute Auto 4.5 x10*3/uL (2.0-8.3); Neutrophils Percent Auto 52.4 % (45-73); Platelet Count 273 X10*3/uL (160-400); Red Blood Count 5.35 X10*6/uL (4.60-5.80); White Blood Count 8.6 X10*3/uL (4.8-10.8)
[2023-03-30 01:14] LABS: Alanine Aminotransferase 37 U/L (0-40); Albumin Level 4.4 g/dL (3.5-5.0); Alkaline Phosphatase 82 U/L (39-117); Anion Gap 14 (12-20); Aspartate Amino Transferase 18 U/L (5-37); Bilirubin Total 0.9 mg/dL (0.0-1.0); Blood Urea Nitrogen 12 mg/dL (9-16); Calcium 9.5 mg/dL (8.4-10.2); Carbon Dioxide 24 mmol/L (22-29); Chloride 104 mmol/L (96-108); Creatinine Clr Calc Pharmacy 125.1; Estimated Glomerular Filt Rate > 60; Glucose Random 116 mg/dL (60-115); Sodium 139 mmol/L (135-145); Total Protein 7.6 g/dL (6.5-8.0)
[2023-03-30 01:18] LABS: Troponin-I High Sensitivity < 2.7 ng/L (<3.5-35.0)
--- NOTE | 2023-03-30 02:37 | ED.GENADULT ---
HPI - General Adult General Chief complaint: General Medical Stated complaint: High Blood pressure Time Seen by Provider: 03/30/23 01:23 Source: patient, family and loss control engineer Mode of arrival: ambulatory History of Present Illness HPI narrative: 42-year-old male with history of high blood pressure reports 1 week of headaches, chest tightness and dizziness but states that it became much worse proximally 1600 this evening. He denies any sick contacts, fevers, chills, but did have some mild nausea at 16:00. Related Data Previous Rx's Medication Instructions Recorded amlodipine 5 mg tablet (Norvasc) 5 mg PO DAILY #60 tabs 06/08/22 erythromycin 5 mg/gram (0.5 %) eye 1 appl ophthalmic (eye) DAILY #3.5 06/08/22 ointment grams qvrarofkgo-brolzlqiietpt-ldzhcess 1 cap PO TID PRN headache #12 caps 12/04/22 50 mg-300 mg-40 mg capsule (Fioricet) Allergies Allergy/AdvReac Type Severity Reaction Status Date / Time No Known Allergies Allergy Verified 03/29/23 23:54 Review of Systems Review of Systems: Pertinent positives and negatives as stated in [facility] Past Medical History Source: nursing notes reviewed Medical History Prediabetes Hypertension Social History Social History Advance Directives: No Advance Directives Information Provided: No Physical Exam ED Vital Signs: Vital Signs - 24 hr 03/29/23 23:50 Temperature 97.6 F Pulse Rate 68 Respiratory Rate 16 Blood Pressure 142/92 H Pulse Oximetry 100 Oxygen Delivery Method Room Air BMI result Body Mass Index 25.4 VITAL SIGNS: Reviewed. GENERAL: Well developed, well nourished, in no acute distress. HEAD: Normocephalic/atraumatic EYES: PERRLA, EOMI EARS: Ext canals without abnormality, TMs non-bulging and non-erythematous NOSE: Nares patent bilateral OROPHARYNX: no oral lesions noted, posterior pharynx clear and non-erythematous without noted tonsillar enlargement/erythema/exudates NECK: Supple, no adenopathy LUNGS: Normal breath sounds. No adventitious sounds or accessory muscle use. SpO2<100> CARDIOVASCULAR: Regular rate and rhythm without noted murmurs, no JVD or lower extremity edema. ABDOMEN: Soft, non-tender, non-distended with bowel sounds. MUSCULOSKELETAL: No tenderness, deformities, or effusions noted on gross inspection. EXTREMITIES: No cyanosis, clubbing or edema. SKIN: Inspection of the skin reveals no rashes NEUROLOGIC: Alert and oriented x 4. Strength and sensation to light touch were grossly intact x 4, no facial asymmetry, no pronator drift, cranial nerves 2-12 are grossly intact.. Medications Administered Discontinued Medications Generic Name Dose Route Start Last Admin Trade Name Juventinoq PRN Reason Stop Dose Admin Acetaminophen 975 mg 03/30/23 02:37 03/30/23 02:52 Acetaminophen 325 Mg Tablet PO 03/30/23 02:38 975 mg ONCE ONE Administration Ibuprofen 400 mg 03/30/23 02:37 03/30/23 02:52 Ibuprofen 400 Mg Tablet PO 03/30/23 02:38 400 mg ONCE ONE Administration Medical Decision Making Medical Decision Making MDM Narrative: 42-year-old male with history and clinical presentation, DDX: Viral illness, dehydration, side effects from blood pressure, but patient is otherwise nonfocal. I reviewed all investigations and hematologic indices are negative for leukocytosis/left shift/anemia/thrombocytopenia. A mild low potassium level which was repleted with 60 mEq of potassium chloride, otherwise no evidence of MIR or liver enzyme derangements. I sensitivity troponin is undetectable. Viral testing negative for COVID 19. There are no acute changes on EKG. My interpretation is that patient is experiencing headaches and symptoms likely associated with viral illness although COVID-19 testing is negative today. Blood pressure appears to be somewhat controlled and patient encouraged to follow-up with his primary care doctor. Patient was provided with combination analgesics and on re-evaluation reports improvement in overall feeling. Differential Diagnosis Differential Diagnoses: The differential diagnosis associated with the presentation includes Please see the discussion above Admission/Observation Consideration of admission/observation: Escalation of care including admission/observation considered Please see the discussion above Lab Data [facility] Lab Attestation statement: I reviewed the patient's lab results. Please see the discussion above 03/30/23 00:50 03/30/23 00:49 Labs: Lab Results 03/30/23 03/30/23 03/30/23 Range/Units 00:49 00:50 02:44 WBC 8.6 (4.8-10.8) X10*3/uL RBC 5.35 (4.60-5.80) X10*6/uL Hgb 16.2 (14.0-18.0) g/dl Hct 45.2 (42.0-52.0) % MCV 84.5 (80.0-98.0) fL MCH 30.3 (27.0-33.0) pg MCHC 35.8 (31.0-36.0) g/dl RDW 12.0 (11.0-16.0) % Plt Count 273 (160-400) X10*3/uL MPV 8.5 L (9.4-12.4) fL Immature Gran % (Auto) 0.2 (0.0-0.4) % Neut % (Auto) 52.4 (45-73) % Lymph % (Auto) 40.0 (20-40) % [place] % (Auto) 6.3 (2-11) % Eos % (Auto) 0.6 (0-4) % Baso % (Auto) 0.5 (0-2) % Lymph # (Auto) 3.4 (1.2-4.9) X10*3/uL [place] # (Auto) 0.5 (0.1-1.2) X10*3/uL Eos # (Auto) 0.1 (0.0-0.4) X10*3/uL Baso # (Auto) 0.0 (0.0-0.2) X10*3/uL Abs Immat Gran (auto) 0.02 (0.00-0.03) X10*3/uL Absolute Neuts (auto) 4.5 (2.0-8.3) x10*3/uL Absolute Nucleated RBC 0.000 (0.0-0.012) X10*3/uL Nucleated RBC % (auto) 0.0 (0.0-0.2) /100WBC Sodium 139 (135-145) mmol/L Potassium 3.0 L (3.3-5.1) mmol/L Chloride 104 (96-108) mmol/L Carbon Dioxide 24 (22-29) mmol/L Anion Gap 14 (12-20) BUN 12 (9-16) mg/dL Creatinine 0.81 (0.5-1.4) mg/dL Estim Creat Clear Calc 125.1 Estimated GFR > 60 Random Glucose 116 H (60-115) mg/dL Calcium 9.5 (8.4-10.2) mg/dL Total Bilirubin 0.9 (0.0-1.0) mg/dL AST 18 (5-37) U/L ALT 37 (0-40) U/L Alkaline Phosphatase 82 (39-117) U/L Troponin I High Sens < 2.7 (<3.5-35.0) ng/L Total Protein 7.6 (6.5-8.0) g/dL Albumin 4.4 (3.5-5.0) g/dL COVID-19 (ITZEL) Negative (Negative) COVID-19 Clin Com See Note Independent Interpretation I performed an independent interpretation of an: EKG Interpretation: Normal sinus rhythm, HR-65, no STEMI, [place]/QRS/QTC is within normal limits. External Record Review External record reviewed: Outpatient record, Prior outpatient labs and Prior outpatient radiology Chronic Conditions Patient?s care impacted by: Hypertension Critical Care Time Critical Care Time Critical Care Time: Yes Total Critical Care Time: 30 Attestation: I personally attest to this time spent taking care of the patient. Discharge Plan Discharge Clinical Impression: Viral syndrome, Headache, Chest pain Patient Disposition: Home, Self-Care Instructions: Chest Pain (ED), General Headache (ED), Viral Syndrome (ED) Additional Instructions: 1. Tylenol 1000 mg, por v?a oral, cada 6 horas seg?n sea necesario para controlar el dolor. No exceda los 4000 mg en 24 horas. Contin?e bebiendo ambar agua. 2. Ibuprofeno 400 mg, por v?a oral con leche o comida, cada 6 horas seg?n sea necesario para controlar el dolor. 3. Megan un seguimiento con aguilar m?dico de atenci?n primaria en los pr?ximos 1 o 2 d?as. Regrese a la nany de emergencias si los s?ntomas empeoran. 1. Tylenol 1000 mg, orally, every 6 hours as needed for pain control. Do not exceed 4000 mg within 24 hours. Please continue to drink plenty of water. 2. Ibuprofen 400 mg, orally with milk or food, every 6 hours as needed for pain control. 3. Please follow-up with primary care doctor in the next 1-2 days. Return to the ER for any worsening symptoms. Prescriptions: No Action amlodipine [Norvasc] 5 mg tablet 5 mg PO DAILY Qty: 60 0RF erythromycin 5 mg/gram (0.5 %) ointment 1 appl ophthalmic (eye) DAILY Qty: 3.5 0RF exsyxucdmr-fvhaemxhbxhip-ceiv [Fioricet] 50-300-40 mg capsule 1 cap PO TID PRN (Reason: headache) Qty: 12 0RF Print Language: Czech
[2023-03-30] MEDS: Ibuprofen 400 MG TABLET PO (02:52)
[2023-03-30] MEDS: Acetaminophen 325 MG TABLET 975 MG PO (02:52)
[2023-03-30 03:07] LABS: COVID-19 Test Negative (Negative); IDNOW Serial# 6674DD1D
[2023-03-30] MEDS: Potassium Chloride ER 20 MEQ TAB.ER.PRT 60 MEQ PO (05:01)
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
== END 2023-03-30 05:39 | disposition home or self-care (01) ==
PROVIDERS: Emergency Provider Student in an Organized Health Care Education/Training Program
DX: B34.9 Viral infection, unspecified (principal); R07.89 Other chest pain; R51.9 Headache, unspecified; Z11.52 Encounter for screening for COVID-19; Z79.899 Other long term (current) drug therapy
CPT/HCPCS: 36415; 80053; 84484; 85025; 87635; 93005; 99283; 99284

== ENCOUNTER → 2023-03-29 23:54 | Outpatient (BNV) | payer OTHER, SELFPAY | PROVIDERS: Emergency Provider Student in an Organized Health Care Education/Training Program; Visit Provider Internal Medicine Cardiovascular Disease | DX: I10 Essential (primary) hypertension (principal) | CPT/HCPCS: 93010 ==

== ENCOUNTER 2023-04-01 14:17 | Outpatient (REF) | payer OTHER, SELFPAY ==
[2023-04-01 16:32] LABS: MANUAL DIFF FLAG NO
[2023-04-01 16:38] LABS: Basophils Percent Auto 0.5 % (0-2); Eosinophils Percent Auto 0.3 % (0-4); Hematocrit 45.9 % (42.0-52.0); Hemoglobin 16.3 g/dl (14.0-18.0); Imm Gran Abs Auto 0.04 X10*3/uL (0.00-0.03); Imm Gran Pct Auto 0.7 % (0.0-0.4); Lymphocytes Absolute Auto 1.6 X10*3/uL (1.2-4.9); Lymphocytes Percent Auto 27.3 % (20-40); Mean Corpuscular HGB Conc 35.5 g/dl (31.0-36.0); Mean Corpuscular Hemoglobin 30.9 pg (27.0-33.0); Mean Corpuscular Volume 87.1 fL (80.0-98.0); Mean Platelet Volume 8.8 fL (9.4-12.4); Monocytes Absolute Auto 0.4 X10*3/uL (0.1-1.2); Monocytes Percent Auto 5.9 % (2-11); Neutrophils Absolute Auto 3.8 x10*3/uL (2.0-8.3); Neutrophils Percent Auto 65.3 % (45-73); Platelet Count 284 X10*3/uL (160-400); Red Blood Count 5.27 X10*6/uL (4.60-5.80); Red Cell Distribution Width 12.2 % (11.0-16.0); White Blood Count 5.9 X10*3/uL (4.8-10.8)
[2023-04-01 16:56] LABS: Anion Gap 13 (12-20); Blood Urea Nitrogen 9 mg/dL (9-16); Calcium 9.6 mg/dL (8.4-10.2); Carbon Dioxide 25 mmol/L (22-29); Chloride 107 mmol/L (96-108); Estimated Average Glucose 103 mg/dL; Estimated Glomerular Filt Rate > 60; Glucose Random 109 mg/dL (60-115); Hemoglobin A1c % 5.2 % (<6.0); Potassium 3.9 mmol/L (3.3-5.1); Sodium 141 mmol/L (135-145)
== END 2023-04-01 14:18 | disposition home or self-care (01) ==
LOC: HO.HHCL 14:17
PROVIDERS: Visit Provider Internal Medicine
DX: E87.6 Hypokalemia (principal); R53.1 Weakness
CPT/HCPCS: 36415; 80048; 83036; 85025

== ENCOUNTER 2023-04-22 07:55 | Emergency (ER) | payer OTHER, SELFPAY ==
[2023-04-22] VITALS (8 sets, daily range): BP systolic 118–154; BP diastolic 77–110; PULSE 65–81; RESP 16–18; TEMP 36.3–36.9; O2SAT 97–100; BMI 29.0
--- NOTE | ~2023-04-22 | XR_ITS ---
EXAMINATION: XR CHEST CLINICAL INFORMATION: Cough COMPARISON: Chest x-ray on 12/04/2022 TECHNIQUE: 2 views of the chest were obtained. FINDINGS: vascularity. LUNGS: Lungs are clear. No pneumothorax is seen. BONES: Bony skeleton is intact. XR/XR chest 2V IMPRESSION: Unchanged Normal chest x-ray.
[2023-04-22 08:33] LABS: MANUAL DIFF FLAG NO
[2023-04-22 08:36] LABS: Basophils Percent Auto 0.2 % (0-2); Eosinophils Percent Auto 0.2 % (0-4); Hematocrit 43.8 % (42.0-52.0); Hemoglobin 15.8 g/dl (14.0-18.0); Imm Gran Abs Auto 0.01 X10*3/uL (0.00-0.03); Imm Gran Pct Auto 0.2 % (0.0-0.4); Lymphocytes Absolute Auto 1.6 X10*3/uL (1.2-4.9); Lymphocytes Percent Auto 37.1 % (20-40); Mean Corpuscular HGB Conc 36.1 g/dl (31.0-36.0); Mean Corpuscular Hemoglobin 30.5 pg (27.0-33.0); Mean Corpuscular Volume 84.6 fL (80.0-98.0); Mean Platelet Volume 8.6 fL (9.4-12.4); Monocytes Absolute Auto 0.3 X10*3/uL (0.1-1.2); Monocytes Percent Auto 7.9 % (2-11); Neutrophils Absolute Auto 2.3 x10*3/uL (2.0-8.3); Neutrophils Percent Auto 54.4 % (45-73); Platelet Count 208 X10*3/uL (160-400); Red Blood Count 5.18 X10*6/uL (4.60-5.80); Red Cell Distribution Width 11.7 % (11.0-16.0); White Blood Count 4.2 X10*3/uL (4.8-10.8)
[2023-04-22 08:53] LABS: Alanine Aminotransferase 22 U/L (0-40); Albumin Level 4.5 g/dL (3.5-5.0); Alkaline Phosphatase 66 U/L (39-117); Anion Gap 12 (12-20); Aspartate Amino Transferase 18 U/L (5-37); Bilirubin Total 0.9 mg/dL (0.0-1.0); Blood Urea Nitrogen 9 mg/dL (9-16); Calcium 9.2 mg/dL (8.4-10.2); Carbon Dioxide 28 mmol/L (22-29); Chloride 105 mmol/L (96-108); Creatinine Clr Calc Pharmacy 137.1; Estimated Glomerular Filt Rate > 60; Glucose Random 100 mg/dL (60-115); Potassium 3.9 mmol/L (3.3-5.1); Sodium 141 mmol/L (135-145); Total Protein 7.6 g/dL (6.5-8.0)
[2023-04-22 09:30] LABS: Influenza A PCR POSITIVE (Negative); Influenza B PCR NEGATIVE (Negative); Resp Syncy Virus RNA Qual PCR NEGATIVE (Negative); SARS COV2 PCR INHOUSE NEGATIVE (Negative)
--- NOTE | 2023-04-22 10:10 | ED.GENADULT ---
HPI - General Adult General Chief complaint: General Medical Stated complaint: cold like symptoms Time Seen by Provider: 04/22/23 08:55 Source: patient, RN notes reviewed and improvement analyst Mode of arrival: ambulatory Limitations: language barrier History of Present Illness HPI narrative: This is a 42-year-old Finnish-speaking male, with no known medical problems, presenting to the emergency department with complaints of fevers, body aches, cough, nasal congestion, 1 episode of vomiting yesterday, dizziness and headache x3 days Patient reports that over the course of the last 3 days he has had all of the symptoms, he has been taking Tylenol and Motrin which has provided him with relief. He states that his symptoms have improved since the onset however have not fully resolved. He denies any vision changes, weakness, numbness or tingling, chest pain, shortness on breath, abdominal pain, nausea, vomiting or diarrhea. He does endorse burning with urination this morning. Denies any recent head strike or loss of consciousness. No sick contacts. No other complaints or concerns at this time. MD complaint: Fevers, body aches, cough Onset (ago): week(s) Radiation: back Quality: aching Pain Consistency: constant Relieving factors: none Exacerbating factors: none Associated symptoms: denies other symptoms Treatments prior to arrival: none Related Data Previous Rx's Medication Instructions Recorded amlodipine 5 mg tablet (Norvasc) 5 mg PO DAILY #60 tabs 06/08/22 erythromycin 5 mg/gram (0.5 %) eye 1 appl ophthalmic (eye) DAILY #3.5 06/08/22 ointment grams couqogoidw-fnbpgpnakrkln-mdcsnnih 1 cap PO TID PRN headache #12 caps 12/04/22 50 mg-300 mg-40 mg capsule (Fioricet) Allergies Allergy/AdvReac Type Severity Reaction Status Date / Time No Known Allergies Allergy Verified 03/29/23 23:54 Review of Systems Review of Systems: Yes all other systems are reviewed and are negative Constitutional: Constitutional: Reports as per [facility] Past Medical History Attestation statement: The following information was validated with the patient. Medical History Prediabetes Hypertension Social History Social History Unable to assess alcohol history related to: Unknown Smoked in Last 30 Days: No Use of substances other than those prescribed or required for medical reasons: Unknown Advance Directives: No Physical Exam ED Vital Signs: Vital Signs - 24 hr 04/22/23 08:18 04/22/23 08:45 04/22/23 10:30 Temperature 97.5 F 97.5 F Pulse Rate 68 76 65 Respiratory Rate 16 16 Blood Pressure 154/110 H 151/106 H 131/104 H Pulse Oximetry 98 100 Oxygen Delivery Method Room Air Room Air 04/22/23 10:30 04/22/23 10:31 04/22/23 12:31 Temperature 97.4 F Pulse Rate 71 81 71 Respiratory Rate 18 Blood Pressure 150/105 H 118/77 130/93 H Pulse Oximetry 97 Oxygen Delivery Method Room Air 04/22/23 14:36 04/22/23 14:37 04/22/23 14:37 Temperature Pulse Rate 66 68 76 Respiratory Rate Blood Pressure 134/98 H 136/92 H 140/96 H Pulse Oximetry Oxygen Delivery Method BMI result Body Mass Index 29.0 Const General: cooperative, comfortable and no acute distress Orientation/consciousness: patient oriented x3 Limitations: no limitations HENMT Head: Yes normal to inspection, Yes normocephalic and Yes atraumatic Ears: hearing grossly normal bilaterally and TM's normal bilaterally General nose exam: Normal external nose present Face and sinus: Yes normal facial exam Mouth: Normal oral and palatal mucosa present, oropharynx normal and moist mucous membranes Throat: Yes posterior oropharynx normal, Yes tonsils normal and Yes uvula midline Eyes General: appearance normal, both eyes and all related structures Eyelids: Yes eyelids normal Conjunctivae: conjunctivae normal Sclerae: sclerae normal Pupils: Equal, round and reactive pupils present EOM: EOMs intact bilaterally Neck Neck: Yes normal visual inspection, Yes full ROM and Yes no lymphadenopathy Lymphatic: no lymphadenopathy noted Chest Chest palpation & inspection: normal inspection of the chest Resp Effort & Inspection: normal respiratory effort and able to speak in complete sentences Auscultation: clear to auscultation bilaterally, no crackles, no rales, no rhonchi and no wheezes Cardio Rate: regular rate Rhythm: regular rhythm Heart sounds: S1 normal heart sound present and S2 normal heart sound present GI Other: Abdomen is soft, nontender, nondistended Inspection: Yes normal to inspection Skin General skin exam: no rashes or lesions noted Trauma: no lacerations or abrasions Wounds: no wounds Neuro General: patient oriented x3 and moves all extremities Cranial nerves: Yes Equal, round and reactive pupils present Extrem General: Yes normal to inspection Right upper extremity: normal to inspection Left upper extremity: normal to inspection Right lower extremity: normal to inspection Left lower extremity: normal to inspection Course Reevaluation(s) Reevaluation #1: Patient no longer orthostatic. Chest x-ray does not show a pneumonia. Urine does not appear to be infected. Discussed workup with patient and improvement analyst at bedside. Given return precautions. He understands and agrees with plan. Stable for discharge Time: 14:28 Medications Administered Discontinued Medications Generic Name Dose Route Start Last Admin Trade Name Freq PRN Reason Stop Dose Admin Acetaminophen 975 mg 04/22/23 10:03 04/22/23 10:16 Acetaminophen 325 Mg Tablet PO 04/22/23 10:04 975 mg ONCE ONE Administration Sodium Chloride 1,000 mls @ 999 mls/hr 04/22/23 10:29 04/22/23 11:38 Ns IV 04/22/23 11:29 999 mls/hr .Q1H1M ONE Administration Medical Decision Making Medical Decision Making [facility] Narrative: This is a 42-year-old male presenting to the emergency department with complaints of fevers, body aches, cough, nausea, vomiting and dizziness for the last week. On arrival, patient mildly hypertensive at 154/110, he is afebrile, in no acute distress. Lungs are clear to auscultation bilaterally. He is endorsing dizziness therefore orthostatic vital signs will be obtained. Differential diagnoses include influenza, COVID, URI, electrolyte derangement. Patient is orthostatic therefore he would benefit from receiving IV fluids. Labs were performed out triage, he has no leukocytosis, no anemia noted, chemistry within normal limits. Urine does not appear to be infected. He did test positive for influenza A. Plan: labs, cxr, iv fluids, tylenol Differential Diagnosis Differential Diagnoses: The differential diagnosis associated with the presentation includes See above Lab Data [facility] Lab Attestation statement: I reviewed the patient's lab results. See MDM 04/22/23 08:28 04/22/23 08:28 Labs: Lab Results 04/22/23 04/22/23 Range/Units 08:28 10:20 WBC 4.2 L (4.8-10.8) X10*3/uL RBC 5.18 (4.60-5.80) X10*6/uL Hgb 15.8 (14.0-18.0) g/dl Hct 43.8 (42.0-52.0) % MCV 84.6 (80.0-98.0) fL MCH 30.5 (27.0-33.0) pg MCHC 36.1 H (31.0-36.0) g/dl RDW 11.7 (11.0-16.0) % Plt Count 208 D (160-400) X10*3/uL MPV 8.6 L (9.4-12.4) fL Immature Gran % (Auto) 0.2 (0.0-0.4) % Neut % (Auto) 54.4 (45-73) % Lymph % (Auto) 37.1 (20-40) % [place] % (Auto) 7.9 (2-11) % Eos % (Auto) 0.2 (0-4) % Baso % (Auto) 0.2 (0-2) % Lymph # (Auto) 1.6 (1.2-4.9) X10*3/uL [place] # (Auto) 0.3 (0.1-1.2) X10*3/uL Eos # (Auto) 0.0 (0.0-0.4) X10*3/uL Baso # (Auto) 0.0 (0.0-0.2) X10*3/uL Abs Immat Gran (auto) 0.01 (0.00-0.03) X10*3/uL Absolute Neuts (auto) 2.3 (2.0-8.3) x10*3/uL Absolute Nucleated RBC 0.000 (0.0-0.012) X10*3/uL Nucleated RBC % (auto) 0.0 (0.0-0.2) /100WBC Sodium 141 (135-145) mmol/L Potassium 3.9 (3.3-5.1) mmol/L Chloride 105 (96-108) mmol/L Carbon Dioxide 28 (22-29) mmol/L Anion Gap 12 (12-20) BUN 9 (9-16) mg/dL Creatinine 0.79 (0.5-1.4) mg/dL Estim Creat Clear Calc 137.1 Estimated GFR > 60 Random Glucose 100 (60-115) mg/dL Calcium 9.2 (8.4-10.2) mg/dL Total Bilirubin 0.9 (0.0-1.0) mg/dL AST 18 (5-37) U/L ALT 22 (0-40) U/L Alkaline Phosphatase 66 (39-117) U/L Total Protein 7.6 (6.5-8.0) g/dL Albumin 4.5 (3.5-5.0) g/dL Urine Color Yellow Urine Appearance Clear Urine pH 8.0 (5.0-9.0) Ur Specific [place] 1.010 (1.005-1.025) Urine Protein Negative (Neg-Trace) mg/dL Urine Glucose (UA) Negative (Negative) mg/dL Urine Ketones Negative (Negative) mg/dL Urine Blood Negative (Negative) Urine Nitrite Negative (Negative) Ur Leukocyte Esterase Negative (Negative) Influenza Type A (PCR) POSITIVE A (Negative) Influenza Type B (PCR) NEGATIVE (Negative) RSV RNA Qual (PCR) NEGATIVE (Negative) SARS-CoV-2 RNA (RT-PCR) NEGATIVE (Negative) Radiology Impression Discussion of test interpretation with radiology: I have reviewed the radiologist's reading. Radiologist Impression: EXAMINATION: XR CHEST CLINICAL INFORMATION: Cough COMPARISON: Chest x-ray on 12/04/2022 TECHNIQUE: 2 views of the chest were obtained. FINDINGS: vascularity. LUNGS: Lungs are clear. No pneumothorax is seen. BONES: Bony skeleton is intact. XR/XR chest 2V IMPRESSION: Unchanged Normal chest x-ray. Dictated By: Shantanu Abernathy Prescription Management I considered prescription management with: Antiviral Patient out of window for Tamiflu Discharge Plan Discharge Clinical Impression: Influenza A Patient Disposition: Home, Self-Care Instructions: Influenza (ED) Additional Instructions: You were seen in the emergency department today and you tested positive for influenza A. Influenza a is a virus, that does not require antibiotics. It is very important that you get plenty of rest, drink plenty of fluids. You may alternate between ibuprofen and Tylenol as needed for pain. I am also prescribing you a cough medicine, Tessalon Perles, this will help with the cough. If any new or worsening symptoms occur including but not limited to chest pain, shortness of breath, please return for re-evaluation. Lo atendieron hoy en el departamento de emergencias y nyla positivo por influenza A. La influenza a es un virus que no requiere antibi?ticos. Es muy importante que descanse mucho y stacey muchos l?quidos. Puede alternar entre ibuprofeno y Tylenol seg?n sea necesario para el dolor. Tambi?n te estoy recetando un medicamento para la tos, Tessalon Perles, que te ayudar? con la tos. Si se presenta alg?n s?ntoma nuevo o que empeora, incluidos, entre otros, dolor en el pecho y dificultad para respirar, regrese para michael nueva evaluaci?n. Prescriptions: No Action amlodipine [Norvasc] 5 mg tablet 5 mg PO DAILY Qty: 60 0RF erythromycin 5 mg/gram (0.5 %) ointment 1 appl ophthalmic (eye) DAILY Qty: 3.5 0RF rbqoilzmja-mvbgkcuhgoozk-tehw [Fioricet] 50-300-40 mg capsule 1 cap PO TID PRN (Reason: headache) Qty: 12 0RF Stand Alone Forms: Work/School Release
[2023-04-22] MEDS: Acetaminophen 325 MG TABLET 975 MG PO (10:16)
[2023-04-22 10:29] LABS: Appearance Urine Clear; Color Urine Yellow; Glucose Urine UA Negative (Negative); Leukocyte Esterase Urine Negative (Negative); Nitrite Urine Negative (Negative); Urine Blood Negative (Negative); Urine Ketones Negative (Negative); Urine Protein Negative (Neg-Trace)
[2023-04-22] MEDS: 0.9 % Sodium Chloride 1,000 ML 999 ML IV (11:38)
== END 2023-04-22 15:09 | disposition home or self-care (01) ==
PROVIDERS: Physician Assistant Medical; Emergency Provider Emergency Medicine
DX: J10.1 Influenza due to other identified influenza virus with other respiratory manifestations (principal); R50.9 Fever, unspecified; M79.10 Myalgia, unspecified site; R05.9 Cough, unspecified; R11.2 Nausea with vomiting, unspecified; R51.9 Headache, unspecified; Z20.822 Contact with and (suspected) exposure to COVID-19; Z11.52 Encounter for screening for COVID-19
CPT/HCPCS: 0241U; 36415; 71046; 80053; 81003; 85025; 99283; 99285

== ENCOUNTER 2023-05-16 13:17 | Emergency (ER) | payer MEDICAID, OTHER, SELFPAY ==
--- NOTE | ~2023-05-16 | XR_ITS ---
EXAMINATION: XR CHEST CLINICAL INFORMATION: Reason for Exam chest pain COMPARISON: Chest radiograph 04/22/2023 TECHNIQUE: 2 views of the chest FINDINGS: Lines and tubes: None. Clear lungs. No pleural effusion. No pneumothorax. Normal cardiomediastinal silhouette. XR/XR chest 2V IMPRESSION: * Clear lungs.
--- NOTE | 2023-05-16 13:20 | ECG_ITS ---
Test Reason : CP Blood Pressure : / mmHG Vent. Rate : 073 BPM Atrial Rate : 073 BPM P-R Int : 162 ms QRS Dur : 086 ms QT Int : 354 ms P-R-T Axes : 043 037 024 degrees QTc Int : 389 ms Normal sinus rhythm Normal ECG When compared with ECG of 30-MAR-2023 00:38, No significant change was found Referred By: Felipa Castañeda Electronically Signed By:KENDELL DAUGHERTY
[2023-05-16 13:24] VITALS: BP 144/99; PULSE 73; RESP 18; TEMP 36.7; O2SAT 99; BMI 28.7
--- NOTE | 2023-05-16 13:24 | ED_ITS ---
HPI - General Adult General Chief complaint: Chest Pain Stated complaint: Chest pain Time Seen by Provider: 05/16/23 16:51 Source: patient Mode of arrival: ambulatory Limitations: no limitations History of Present Illness HPI narrative: Patient history of hypertension no history of substance abuse been having palpitation episode off and on for last 2 days lasting for few minutes without any dizziness or passing-out episode during a episode of palpitation patient get some left-sided chest discomfort. At this time patient does not any chest pain or palpitation Related Data Previous Rx's Medication Instructions Recorded amlodipine 5 mg tablet (Norvasc) 5 mg PO DAILY #60 tabs 06/08/22 erythromycin 5 mg/gram (0.5 %) eye 1 appl ophthalmic (eye) DAILY #3.5 06/08/22 ointment grams ianyidaufp-alkbqxbahkdcj-pxpuwtsg 1 cap PO TID PRN headache #12 caps 12/04/22 50 mg-300 mg-40 mg capsule (Fioricet) Allergies Allergy/AdvReac Type Severity Reaction Status Date / Time No Known Allergies Allergy Verified 03/29/23 23:54 Review of Systems 2 Review of Systems: Yes all other systems are reviewed and are negative [facility] Past Medical History Medical History Prediabetes Hypertension Social History Social History Unable to assess alcohol history related to: Unknown Advance Directives: No Advance Directives Information Provided: Yes Physical Exam ED Vital Signs: Vital Signs - 24 hr 05/16/23 13:24 05/16/23 17:35 05/16/23 17:36 Temperature 98.0 F 98.4 F 98.4 F Pulse Rate 73 73 73 Respiratory Rate 18 16 16 Blood Pressure 144/99 H 140/90 H 140/90 H Pulse Oximetry 99 98 98 Oxygen Delivery Method Room Air Room Air Room Air BMI result Body Mass Index 28.7 Appearance: Alert. Oriented X3. No acute distress. Eyes: PERRLA, No Nystagmus ENT: Pharynx normal. Oral Mucosa moist Neck: Normal inspection. Neck supple. CVS: Normal heart rate and rhythm. Pulses normal. Respiratory: No respiratory distress. Equal air entry bilateral, no wheezing/rales/rhonchi Abdomen: Soft and nontender. Bowel sounds are present, no mass palpable, no CVA tenderness Skin: Skin warm and dry. Normal skin color. Normal skin turgor. Extremities: No lower extremity edema. No calf tenderness Neuro: Oriented X 3. No motor deficit. No sensory deficit.No cerebellar signs , cranial nerves II-XII intact Course Course Course Narrative: This is a rapid medical exam: Additional HPI, ROS, PE not included below will be deferred to primary provider. Patient is a 42-year-old male presenting to the emergency department with complaint of chest pain/pressure since today, palpitations, headache x 2 days, dizziness. Denies fevers. Plan: EKG, labs, CXR Medical Decision Making Medical Decision Making MDM Narrative: Patient with nonspecific palpitation likely PACs during stay in the ER no palpitation noticed lab workup negative high sensitive troponin negative Differential Diagnosis Differential Diagnoses: The differential diagnosis associated with the presentation includes SVT/atrial fibrillation/cardiac arrhythmias/PA-C Lab Data [facility] Lab Attestation statement: I reviewed the patient's lab results. 05/16/23 13:34 05/16/23 13:34 Labs: Lab Results 05/16/23 Range/Units 13:34 WBC 5.5 (4.8-10.8) X10*3/uL RBC 5.24 (4.60-5.80) X10*6/uL Hgb 15.9 (14.0-18.0) g/dl Hct 44.5 (42.0-52.0) % MCV 84.9 (80.0-98.0) fL MCH 30.3 (27.0-33.0) pg MCHC 35.7 (31.0-36.0) g/dl RDW 11.8 (11.0-16.0) % Plt Count 243 (160-400) X10*3/uL MPV 8.4 L (9.4-12.4) fL Immature Gran % (Auto) 0.4 (0.0-0.4) % Neut % (Auto) 58.1 (45-73) % Lymph % (Auto) 32.8 (20-40) % [place] % (Auto) 7.9 (2-11) % Eos % (Auto) 0.4 (0-4) % Baso % (Auto) 0.4 (0-2) % Lymph # (Auto) 1.8 (1.2-4.9) X10*3/uL [place] # (Auto) 0.4 (0.1-1.2) X10*3/uL Eos # (Auto) 0.0 (0.0-0.4) X10*3/uL Baso # (Auto) 0.0 (0.0-0.2) X10*3/uL Abs Immat Gran (auto) 0.02 (0.00-0.03) X10*3/uL Absolute Neuts (auto) 3.2 (2.0-8.3) x10*3/uL Absolute Nucleated RBC 0.000 (0.0-0.012) X10*3/uL Nucleated RBC % (auto) 0.0 (0.0-0.2) /100WBC PT 11.6 (11.1-13.3) SEC INR 1.0 (0.9-1.1) Sodium 140 (135-145) mmol/L Potassium 3.7 (3.3-5.1) mmol/L Chloride 107 (96-108) mmol/L Carbon Dioxide 24 (22-29) mmol/L Anion Gap 13 (12-20) BUN 8 L (9-16) mg/dL Creatinine 0.83 (0.5-1.4) mg/dL Estim Creat Clear Calc 131.2 Estimated GFR > 60 Random Glucose 101 (60-115) mg/dL Calcium 9.4 (8.4-10.2) mg/dL Total Bilirubin 1.2 H (0.0-1.0) mg/dL AST 16 (5-37) U/L ALT 29 (0-40) U/L Alkaline Phosphatase 78 (39-117) U/L Troponin I High Sens < 2.7 (<3.5-35.0) ng/L Total Protein 7.5 (6.5-8.0) g/dL Albumin 4.4 (3.5-5.0) g/dL Independent Interpretation I performed an independent interpretation of an: EKG Interpretation: Normal sinus rhythm heart rate 73 beats per minute normal interval normal axis no acute ST T wave changes no acute ischemia Discharge Plan Discharge Clinical Impression: Chest pain, Palpitations Patient Disposition: Home, Self-Care Instructions: Chest Pain (ED), Heart Palpitations (ED) Additional Instructions: Your palpitation likely benign report to the ER if the stay longer and make you pass out Decrease caffeine intake Follow-up with PCP Prescriptions: No Action amlodipine [Norvasc] 5 mg tablet 5 mg PO DAILY Qty: 60 0RF erythromycin 5 mg/gram (0.5 %) ointment 1 appl ophthalmic (eye) DAILY Qty: 3.5 0RF zvyaymaczq-tdjisaancixhp-ejib [Fioricet] 50-300-40 mg capsule 1 cap PO TID PRN (Reason: headache) Qty: 12 0RF Interventions: ED Discharge Assessment Last Done: 05/16/23 17:36 Discharge Date/Time: 05/16/23 17:37 Print Language: [place]
[2023-05-16 13:40] LABS: MANUAL DIFF FLAG NO
[2023-05-16 13:41] LABS: Basophils Percent Auto 0.4 % (0-2); Eosinophils Percent Auto 0.4 % (0-4); Hematocrit 44.5 % (42.0-52.0); Hemoglobin 15.9 g/dl (14.0-18.0); Imm Gran Abs Auto 0.02 X10*3/uL (0.00-0.03); Imm Gran Pct Auto 0.4 % (0.0-0.4); Lymphocytes Absolute Auto 1.8 X10*3/uL (1.2-4.9); Lymphocytes Percent Auto 32.8 % (20-40); Mean Corpuscular HGB Conc 35.7 g/dl (31.0-36.0); Mean Corpuscular Hemoglobin 30.3 pg (27.0-33.0); Mean Corpuscular Volume 84.9 fL (80.0-98.0); Mean Platelet Volume 8.4 fL (9.4-12.4); Monocytes Absolute Auto 0.4 X10*3/uL (0.1-1.2); Monocytes Percent Auto 7.9 % (2-11); Neutrophils Absolute Auto 3.2 x10*3/uL (2.0-8.3); Neutrophils Percent Auto 58.1 % (45-73); Platelet Count 243 X10*3/uL (160-400); Red Blood Count 5.24 X10*6/uL (4.60-5.80); Red Cell Distribution Width 11.8 % (11.0-16.0); White Blood Count 5.5 X10*3/uL (4.8-10.8)
[2023-05-16 13:48] LABS: Prothrombin Time 11.6 SEC (11.1-13.3)
[2023-05-16 13:53] LABS: Alanine Aminotransferase 29 U/L (0-40); Albumin Level 4.4 g/dL (3.5-5.0); Alkaline Phosphatase 78 U/L (39-117); Anion Gap 13 (12-20); Aspartate Amino Transferase 16 U/L (5-37); Bilirubin Total 1.2 mg/dL (0.0-1.0); Blood Urea Nitrogen 8 mg/dL (9-16); Calcium 9.4 mg/dL (8.4-10.2); Carbon Dioxide 24 mmol/L (22-29); Chloride 107 mmol/L (96-108); Creatinine Clr Calc Pharmacy 131.2; Estimated Glomerular Filt Rate > 60; Glucose Random 101 mg/dL (60-115); Potassium 3.7 mmol/L (3.3-5.1); Sodium 140 mmol/L (135-145); Total Protein 7.5 g/dL (6.5-8.0)
[2023-05-16 14:05] LABS: Troponin-I High Sensitivity < 2.7 ng/L (<3.5-35.0)
[2023-05-16 17:35] VITALS: BP 140/90; PULSE 73; RESP 16; TEMP 36.9; O2SAT 98
[2023-05-16 17:36] VITALS: BP 140/90; PULSE 73; RESP 16; TEMP 36.9; O2SAT 98
== END 2023-05-16 17:37 | disposition home or self-care (01) ==
PROVIDERS: Registered Nurse Emergency; Emergency Provider Internal Medicine; PCP Student in an Organized Health Care Education/Training Program
DX: R07.9 Chest pain, unspecified (principal); R00.2 Palpitations; I10 Essential (primary) hypertension
CPT/HCPCS: 36415; 71046; 80053; 84484; 85025; 85610; 93005; 99283

== ENCOUNTER → 2023-05-16 13:20 | Outpatient (BNV) | payer MEDICAID, SELFPAY | PROVIDERS: Emergency Provider Internal Medicine; PCP Student in an Organized Health Care Education/Training Program; Visit Provider Internal Medicine | DX: R07.9 Chest pain, unspecified (principal) | CPT/HCPCS: 93010 ==

== ENCOUNTER 2023-08-08 21:25 | Emergency (ER) | payer MEDICAID, OTHER, SELFPAY ==
[2023-08-08 21:49] VITALS: BP 157/111; PULSE 84; RESP 16; TEMP 36.6; O2SAT 99; BMI 24.0
--- NOTE | 2023-08-08 21:53 | ECG_ITS ---
Test Reason : DIZZY/NAUSEA Blood Pressure : / mmHG Vent. Rate : 069 BPM Atrial Rate : 069 BPM P-R Int : 160 ms QRS Dur : 084 ms QT Int : 380 ms P-R-T Axes : 012 015 020 degrees QTc Int : 407 ms Normal sinus rhythm Normal ECG When compared with ECG of 16-MAY-2023 13:21, No significant change was found Referred By: Generic ED Physician Electronically Signed By:KENDELL DAUGHERTY
[2023-08-08 22:40] LABS: Anion Gap 19 (12-20); Blood Urea Nitrogen 9 mg/dL (9-16); Calcium 9.9 mg/dL (8.4-10.2); Carbon Dioxide 19 mmol/L (22-29); Chloride 106 mmol/L (96-108); Creatinine Clr Calc Pharmacy 131.4; Estimated Glomerular Filt Rate > 60; Glucose Random 106 mg/dL (60-115); Potassium 3.8 mmol/L (3.3-5.1); Sodium 140 mmol/L (135-145)
[2023-08-08 22:48] LABS: Basophils Absolute Auto 0.1 X10*3/uL (0.0-0.2); Imm Gran Abs Auto 0.05 X10*3/uL (0.00-0.03); Neutrophils Percent Auto 52.4 % (45-73); PLT CLUMP 1; SCAN SMEAR FLAG 1
[2023-08-08 22:50] LABS: Basophils Percent Auto 0.6 % (0-2); Eosinophils Absolute Auto 0.1 X10*3/uL (0.0-0.4); Eosinophils Percent Auto 0.9 % (0-4); Hematocrit 45.7 % (42.0-52.0); Hemoglobin 16.5 g/dl (14.0-18.0); Imm Gran Pct Auto 0.6 % (0.0-0.4); Lymphocytes Absolute Auto 3.5 X10*3/uL (1.2-4.9); Lymphocytes Percent Auto 38.8 % (20-40); MANUAL DIFF FLAG SCAN; Mean Corpuscular HGB Conc 36.1 g/dl (31.0-36.0); Mean Corpuscular Hemoglobin 30.9 pg (27.0-33.0); Mean Corpuscular Volume 85.6 fL (80.0-98.0); Mean Platelet Volume 9.5 fL (9.4-12.4); Monocytes Absolute Auto 0.6 X10*3/uL (0.1-1.2); Monocytes Percent Auto 6.7 % (2-11); Neutrophils Absolute Auto 4.7 x10*3/uL (2.0-8.3); Red Blood Count 5.34 X10*6/uL (4.60-5.80); Troponin-I High Sensitivity < 2.7 ng/L (<3.5-35.0); White Blood Count 8.9 X10*3/uL (4.8-10.8)
[2023-08-08 22:51] LABS: Platelet Count 252 X10*3/uL (160-400)
[2023-08-08 23:06] LABS: SLIDE REVIEW VERIFIED
--- NOTE | 2023-08-08 23:51 | ED_ITS ---
HPI - General Adult General Chief complaint: Headache Stated complaint: high blood pressure? Time Seen by Provider: 08/08/23 23:46 Source: patient Mode of arrival: ambulatory Limitations: no limitations History of Present Illness ED Provider: brenden DWYER narrative: Patient apparently had chupotly food earlier today within 3 hours of eating food noticed dizziness nausea headache body aches had loose bowel earlier no fever no chills no history of migraines in the past on arrival blood pressure was 157/111 repeat blood pressure 128/94 Related Data Previous Rx's ?Medication ?Instructions ?Recorded amlodipine 5 mg tablet (Norvasc) 5 mg PO DAILY #60 tabs 06/08/22 erythromycin 5 mg/gram (0.5 %) eye 1 appl ophthalmic (eye) DAILY #3.5 06/08/22 ointment grams kfgmkvccrz-blzysyzdkyqxr-gtjbkbbm 1 cap PO TID PRN headache #12 caps 12/04/22 50 mg-300 mg-40 mg capsule (Fioricet) ondansetron 4 mg disintegrating 4 mg PO Q6-8H PRN nausea and 08/09/23 tablet vomiting #7 tabs Allergies Allergy/AdvReac Type Severity Reaction Status Date / Time No Known Allergies Allergy Verified 08/08/23 21:50 Review of Systems 2 Review of Systems: Yes all other systems are reviewed and are negative PMFSH Past Medical History Medical History Prediabetes Hypertension Social History Social History Unable to assess alcohol history related to: Unknown Advance Directives: No Advance Directives Information Provided: No Do you have a plan to hurt others: No Plan Physical Exam ED Vital Signs: Vital Signs - 24 hr 08/08/23 21:49 08/08/23 23:57 08/09/23 00:51 Temperature 97.8 F 97.9 F 97.9 F Pulse Rate 84 61 61 Respiratory Rate 16 17 17 Blood Pressure 157/111 H 128/94 H 128/94 H Pulse Oximetry 99 98 98 Oxygen Delivery Method Room Air Room Air Room Air BMI result Body Mass Index 24.0 Appearance: Alert. Oriented X3. No acute distress. Eyes: PERRLA, No Nystagmus ENT: Pharynx normal. Oral Mucosa moist Neck: Normal inspection. Neck supple. CVS: Normal heart rate and rhythm. Pulses normal. Respiratory: No respiratory distress. Equal air entry bilateral, no wheezing/rales/rhonchi Abdomen: Soft and nontender. Bowel sounds are present, no mass palpable, no CVA tenderness Skin: Skin warm and dry. Normal skin color. Normal skin turgor. Extremities: No lower extremity edema. No calf tenderness Neuro: Oriented X 3. No motor deficit. No sensory deficit.No cerebellar signs , cranial nerves II-XII intact Medications Administered Discontinued Medications Generic Name Dose Route Start Last Admin Trade Name Juventinoq PRN Reason Stop Dose Admin Ondansetron HCl 4 mg 08/09/23 00:24 08/09/23 00:47 Ondansetron Odt 4 Mg Tab.Rapdis TRANSLINGU 08/09/23 00:25 4 mg ONCE ONE Administration Medical Decision Making Medical Decision Making [facility] Narrative: Patient's symptoms likely from bad food he ate at noon time feeling much better after arrival nausea subsided and not having any diarrhea or discharge [facility] Differential Diagnosis Differential Diagnoses: The differential diagnosis associated with the presentation includes Lab Data [facility] Lab Attestation statement: I reviewed the patient's lab results. 08/08/23 22:23 08/08/23 22:23 Labs: Lab Results 08/08/23 Range/Units 22:23 WBC 8.9 (4.8-10.8) X10*3/uL RBC 5.34 (4.60-5.80) X10*6/uL Hgb 16.5 (14.0-18.0) g/dl Hct 45.7 (42.0-52.0) % MCV 85.6 (80.0-98.0) fL MCH 30.9 (27.0-33.0) pg MCHC 36.1 H (31.0-36.0) g/dl RDW 12.0 (11.0-16.0) % Plt Count 252 (160-400) X10*3/uL MPV 9.5 (9.4-12.4) fL Immature Gran % (Auto) 0.6 H (0.0-0.4) % Neut % (Auto) 52.4 (45-73) % Lymph % (Auto) 38.8 (20-40) % [place] % (Auto) 6.7 (2-11) % Eos % (Auto) 0.9 (0-4) % Baso % (Auto) 0.6 (0-2) % Lymph # (Auto) 3.5 (1.2-4.9) X10*3/uL [place] # (Auto) 0.6 (0.1-1.2) X10*3/uL Eos # (Auto) 0.1 (0.0-0.4) X10*3/uL Baso # (Auto) 0.1 (0.0-0.2) X10*3/uL Abs Immat Gran (auto) 0.05 H (0.00-0.03) X10*3/uL Absolute Neuts (auto) 4.7 (2.0-8.3) x10*3/uL Absolute Nucleated RBC 0.000 (0.0-0.012) X10*3/uL Nucleated RBC % (auto) 0.0 (0.0-0.2) /100WBC Smear Tech's Comments VERIFIED Sodium 140 (135-145) mmol/L Potassium 3.8 (3.3-5.1) mmol/L Chloride 106 (96-108) mmol/L Carbon Dioxide 19 L (22-29) mmol/L Anion Gap 19 (12-20) BUN 9 (9-16) mg/dL Creatinine 0.82 (0.5-1.4) mg/dL Estim Creat Clear Calc 131.4 Estimated GFR > 60 Random Glucose 106 (60-115) mg/dL Calcium 9.9 (8.4-10.2) mg/dL Troponin I High Sens < 2.7 (<3.5-35.0) ng/L Independent Interpretation I performed an independent interpretation of an: EKG Interpretation: Normal sinus rhythm heart rate 69 beats per minute normal interval normal axis no acute ST T wave changes no acute ischemia Discharge Plan Discharge Clinical Impression: Headache, Food poisoning Patient Disposition: Home, Self-Care Instructions: Food Poisoning (ED), General Headache (ED) Additional Instructions: Drink plenty of fluids Medicine for nausea as prescribed Prescriptions: New ondansetron 4 mg tablet,disintegrating 4 mg PO Q6-8H PRN (Reason: nausea and vomiting) Qty: 7 0RF No Action amlodipine [Norvasc] 5 mg tablet 5 mg PO DAILY Qty: 60 0RF erythromycin 5 mg/gram (0.5 %) ointment 1 appl ophthalmic (eye) DAILY Qty: 3.5 0RF xdzqzwbido-wzrjfkwykukmq-sdak [Fioricet] 50-300-40 mg capsule 1 cap PO TID PRN (Reason: headache) Qty: 12 0RF Interventions: ED Discharge Assessment Last Done: 08/09/23 00:51 Discharge Date/Time: 08/09/23 00:52 Print Language: [place]
[2023-08-08 23:57] VITALS: BP 128/94; PULSE 61; RESP 17; TEMP 36.6; O2SAT 98
[2023-08-09] MEDS: Ondansetron ODT 4 MG TAB.RAPDIS TRANSLINGU (00:47)
[2023-08-09 00:51] VITALS: BP 128/94; PULSE 61; RESP 17; TEMP 36.6; O2SAT 98
== END 2023-08-09 00:52 | disposition home or self-care (01) ==
PROVIDERS: Emergency Provider Internal Medicine; PCP Internal Medicine
DX: A05.9 Bacterial foodborne intoxication, unspecified (principal); R51.9 Headache, unspecified; I10 Essential (primary) hypertension
CPT/HCPCS: 36415; 80048; 84484; 85025; 93005; 99284

== ENCOUNTER → 2023-08-08 21:53 | Outpatient (BNV) | payer SELFPAY | PROVIDERS: Emergency Provider Internal Medicine; PCP Internal Medicine; Visit Provider Internal Medicine | DX: R42 Dizziness and giddiness (principal) | CPT/HCPCS: 93010 ==

== ENCOUNTER 2024-01-24 08:47 | Outpatient (REF) | payer SELFPAY ==
[2024-01-24 11:39] LABS: Hematocrit 49.3 % (42.0-52.0); Hemoglobin 17.3 g/dl (14.0-18.0); Mean Corpuscular HGB Conc 35.1 g/dl (31.0-36.0); Mean Corpuscular Hemoglobin 30.4 pg (27.0-33.0); Mean Corpuscular Volume 86.5 fL (80.0-98.0); Mean Platelet Volume 8.9 fL (9.4-12.4); Platelet Count 271 X10*3/uL (160-400); Red Cell Distribution Width 11.9 % (11.0-16.0); White Blood Count 6.4 X10*3/uL (4.8-10.8)
[2024-01-24 12:07] LABS: Estimated Average Glucose 108 mg/dL; Hemoglobin A1C 155.2843 umol/L; Hemoglobin A1c % 5.4 % (<6.0)
[2024-01-24 12:11] LABS: Creatinine Urine 198.29 mg/dL; Microalbum/Creatinine Ratio Ur 28.2 ug/mg cr (<30)
[2024-01-24 12:14] LABS: Alanine Aminotransferase 34 U/L (0-40); Albumin Level 4.7 g/dL (3.5-5.0); Alkaline Phosphatase 87 U/L (39-117); Anion Gap 15 (12-20); Aspartate Amino Transferase 29 U/L (5-37); Bilirubin Total 1.3 mg/dL (0.0-1.0); Blood Urea Nitrogen 11 mg/dL (9-16); Calcium 9.6 mg/dL (8.4-10.2); Carbon Dioxide 25 mmol/L (22-29); Chloride 103 mmol/L (96-108); Cholesterol 193 mg/dL (<200); Estimated Glomerular Filt Rate > 60; Glucose Random 106 mg/dL (60-115); HDL Cholesterol 40 mg/dL (>40); LDL Cholesterol Calculated 108 mg/dL (<100); Potassium 3.7 mmol/L (3.3-5.1); Sodium 139 mmol/L (135-145); TSH reflex Free T4 1.67 uIU/mL (0.32-4.0); Total Protein 7.9 g/dL (6.5-8.0); Triglycerides 225 mg/dL (<150)
[2024-01-24 12:17] LABS: Syphilis Screen Nonreactive (Nonreactive)
[2024-01-24 12:22] LABS: HBS Num1 > 1000.00 mIU/mL (0-7.99); HBc Num1 0.15 S/CO (0.00-0.79); HBsAGNum1 0.38 S/CO (0.00-0.99); HIV AB/AG Nonreactive (Nonreactive); HIV Num 1 0.11 S/CO (0.00-0.99); Hepatitis B Core Antibody Nonreactive (Nonreactive); Hepatitis B Surface Antigen Negative (Negative); ~HepC Num1 0.12 S/CO (0.00-0.79); ~Hepatitis B Surface Antibody REACTIVE (Nonreactive); ~Hepatitis C Antibody Nonreactive (Nonreactive)
== END 2024-01-24 08:48 | disposition home or self-care (01) ==
LOC: HO.HHCL 08:47
PROVIDERS: Visit Provider Student in an Organized Health Care Education/Training Program
DX: Z00.00 Encounter for general adult medical examination without abnormal findings (principal); Z13.1 Encounter for screening for diabetes mellitus
CPT/HCPCS: 36415; 80053; 80061; 82043; 82570; 83036; 84443; 85027; 86704; 86706; 86780; 86803; 87340; 87389